=== PATIENT | male | born 1945 | race Two or more races ===

== ENCOUNTER 2024-11-10 06:08 | Observation (INO) | payer OTHER ==
[~2024-11-10] VITALS: Ht 167.6 cm; Wt 112.0 kg
[~2024-11-10 06:08] MED LIST: APIX5TAB PO; ATOR20TA50 PO; DRON400T PO; EMPA1TAB3 PO; GLIP10TA9 PO; MET50T GT; METF-372 PO; MULT-1018 PO; NIFE1TAB31 PO; POTA-36 PO; SITA100T7 PO; SPIR25TA8 PO
[2024-11-10] MEDS: CELECOXIB 100 MG CAP ONE (06:14)
[2024-11-10] MEDS: ACETAMINOPHEN IV 100 ML IV ONE (06:15)
[2024-11-10] MEDS: PREGABALIN CAPSULE 75 MG CAP ONE (06:29)
[2024-11-10] MEDS: ACETAMINOPHEN IV 1000 MG/100ML (10MG/ML) IV ONE (07:00)
[2024-11-10] MEDS: CELECOXIB 100 MG CAP PO ONE (07:00)
[2024-11-10] MEDS ORDERED: OXYCODONE W/ ACETAMINOPHEN 5/325MG TABLET PO PRN ×2 (07:00)
[2024-11-10] MEDS ORDERED: HYDROmorphone HCL 2 MG/ML VL/or syr IV PRN (07:00)
[2024-11-10] MEDS: D5W/LACTATED RINGERS 1,000 ML IV SCH (07:00)
[2024-11-10] MEDS: PREGABALIN CAPSULE 75 MG CAP PO ONE (07:00)
[2024-11-10] MEDS ORDERED: NITROGLYCERIN 0.4 MG SL TAB SL PRN (07:00)
[2024-11-10] MEDS ORDERED: MORPHINE SULFATE INJ 2 MG/ml SYRG IV PRN (07:00)
[2024-11-10] MEDS: SUCCINYLCHOLINE CHLORIDE 20 MG/ML 10ML VIAL IV ONE (07:12)
[2024-11-10] MEDS ORDERED: fentaNYL CITRATE 100 MCG/2 ML VL ONE (07:14)
[2024-11-10] MEDS ORDERED: DEXTROSE (50%) 50ML SYRG IV PRN (07:15)
[2024-11-10] MEDS ORDERED: PROPOFOL 10 MG/ML 20 ML IV ONE (07:15)
[2024-11-10] MEDS ORDERED: HYDROmorphone HCL 2 MG/ML VL/or syr ONE (07:15)
[2024-11-10] MEDS: ceFAZolin 2 GM/D5W50ml 50 ML IV ONE (07:25)
[2024-11-10] MEDS: CEFEPIME 1GM/ 50ML 50 ML IV ONE (07:30)
[2024-11-10] MEDS: TRANEXAMIC ACID 20 ML ONE (07:35)
[2024-11-10] MEDS ORDERED: ROCURONIUM 10MG/ML 10ML VIAL IV ONE (07:40)
[2024-11-10] MEDS: KETOROLAC TROMETH 30 MG/ML 1ML VIAL ONE (07:50)
[2024-11-10] MEDS: MORPHINE SULF PF 5 MG/10 ML VIAL ONE (07:50)
[2024-11-10] MEDS: BUPIVACAINE 0.25% INJ 50ML VIAL ONE (07:50)
[2024-11-10] MEDS: VANCOMYCIN HCL 1000 MG VL ONE (08:30)
[2024-11-10] MEDS ORDERED: SUGAMMADEX 200mg/2ml Vial (100MG/ML) IV ONE (08:44)
[2024-11-10 08:50] VITALS: PULSE 59; RESP 9; O2SAT 94
[2024-11-10] MEDS ORDERED: KETOROLAC TROMETH 30 MG/ML 1ML VIAL ONE (09:10)
[2024-11-10] MEDS: ONDANSETRON HCL 4 MG/2 ML VIAL IV ONE (09:15)
[2024-11-10] MEDS ORDERED: MEPERIDINE HCL (25 MG/ML) 1ML VIAL IV PRN (09:15)
[2024-11-10] MEDS ORDERED: ACETAMINOPHEN IV 1000 MG/100ML (10MG/ML) IV PRN (09:15)
[2024-11-10] MEDS ORDERED: ATORVASTATIN 20 MG TAB PO SCH (10:00)
[2024-11-10] MEDS: METOPROLOL TARTRATE 50 MG TAB GT SCH (10:00)
[2024-11-10] MEDS: SPIRONOLACTONE 25 MG TAB PO SCH (10:00)
[2024-11-10] MEDS: CEFEPIME 1GM/ 50ML 50 ML IV SCH (10:00)
[2024-11-10] MEDS: JARDIANCE 25 MG PO SCH (10:00)
--- NOTE | 2024-11-10 10:04 | DVH ---
EXAM: XY R SHOULDER 1V XRAY HISTORY: sp Right reverse total shoulder COMPARISON: None TECHNIQUE: AP view of the right shoulder performed. FINDINGS/IMPRESSION: Postoperative changes of right shoulder reverse total arthroplasty, with nondisplaced periprosthetic fracture involving the right humeral diaphysis just distal to the tip of the humeral stem.
[2024-11-10] MEDS: HYDROmorphone HCL 2 MG/ML VL/or syr IV PRN (10:21)
[2024-11-10] MEDS: HYDROmorphone HCL 2 MG/ML VL/or syr ONE (10:29)
--- NOTE | 2024-11-10 11:05 | DVHOP2 ---
Operative Report - 2 Report Details Date: 11/10/24 Preop Diagnosis: Right rotator cuff arthropathy Postop Diagnosis: Right rotator cuff arthropathy Surgeon: Babar Gardiner MD X Ray Nurse: Manjinder WEINSTEIN/ Dawit BEACH Anesthesiologist: Chiqui TAPIA Anesthesia: General Implant: Shoulder FX 36 mm glenoid 12 mm stem +6 constraint poly 4 locking screws Consent: The patient was informed of the risks and benefits of the procedure. These include but are not limited to complications of anesthesia, postoperative infection, incomplete relief of symptoms, recurrence of symptoms, damage to blood vessels, nerves and tendons, deep venous thrombosis, pulmonary embolism and possible need for repeat surgery in the future. Estimated Blood Loss: 100 cc Name of Procedure Performed Right reverse total shoulder replacement Procedure Details Procedure Details: The patient was taken to the operative suite, placed on the operative field. Department of Anesthesia administered general anesthetic. Once adequately sedated, the patient was placed in the beach chair position. Care was ensured that he was well positioned, adequately secured and padded. At this point, the right upper extremity was then prepped and draped in the usual sterile fashion. A deltopectoral approach was used and taken down to the skin with a #15 blade scalpel. Cephalic vein was transported medially. At this point, blunt dissection with Thakkar scissors was used to come to the overlying subscapular tendon and bursal tissue. Any perforating bleeders were cauterized with Bovie to obtain hemostasis. Once the bursa was seen, it was removed with a Rongeur and subscapular tendon could be easily visualized. At this point, the rotator cuff in the subacromial region was evaluated. There was noted to be a large rotator cuff, which was irreparable. There was eburnated bone on the greater tuberosity noted. The articular surface could be visualized. The biceps tendon was intact. Biceps tenodesis was done to the pec minor. At this point, the subscapular tendon was then taken off using Bovie cautery and Metzenbaum scissors. Protection of axillary nerve was done while subscap and capsule fully releaed. It was from the capsule to have a two layered repair at closure. The capsule was also reflected posterior. At this point, the glenoid surface could be easily visualized. It was evaluated and had end stage arthritis. The humeral head was evaluated. There was noted to be alexander of the cartilage and eburnated bone particularly in the central portion of the humeral head. At this point, decision was made to proceed with the arthroplasty, since the rotator cuff tear was irreparable and there was significant alexander of the humoral head. The arm was adequately positioned. An oscillating saw was used to make the head articular cut using guide. This was done at the margin of the articular surface with the anatomic neck. This was taken down to appropriate level until this articular surface was adequately removed. At this point, the intramedullary canal and cancellous bone could be easily visualized. The opening hand reamers were then used and this was advanced to a size that had a good fit. Under direct visualization, this was performed easily. This was then removed. A trial component was then impacted into place, which did fit well and appeared adequately secured. We then turned our attention to glenoid. Batman retractor placed posteroinfe riorly on glenoid. Subscap was mobilized wtih protection the axillary nerve with palpation. Dorian was place between subscap and gelnoid. A bent malcolm was placed just above the the biceps tendon on the glenoid. Labrum was removed and capsule was released. We then placed glenoid drill guide and steinmann pin according to CT for correct version. We reamed glenoid down to bleeding cancellous bone. Glenoid irrigataed and glenoid component placed. Center lag screw with excellent bicortical purchase. 4 locking screws placed. Correct glenosphere offset determined and glenosphere impacted. Stand humeral tray and liner trialed with good IR/ER/FF and stability with only 1 mm shuck. Trial liner removed. Humerus trial removed. Correct humeral implant impacted along with tray and liner. Stability was appropriate. Subscap was not able to be repaired. Wound was irrigated. Deltopectoral interval closed with 0-vicryl followed by 2-0 and janice for skin. Aquacel dressing placed. Condition Good Disposition Still a Patient BABAR GARDINER MD Nov 10, 2024 11:05
[2024-11-10] MEDS: ACCU-CHEK COMFORT CURVE STRIP VI SCH (11:30)
[2024-11-10] MEDS: InsuLIN REG 1unit/0.01ml Soln (100units/ml) SC SCH ×2 (11:30→22:13)
[2024-11-10] MEDS: SODIUM CHLOR 0.9% PF (SALINE LOCK) 10ML VIAL/SYR IV SCH (14:11)
[2024-11-10] MEDS: DRONEDARONE HCL 400 MG TAB PO SCH (14:42)
[2024-11-10] MEDS: ceFAZolin 2 GM/D5W50ml 50 ML IV SCH (14:43)
[2024-11-10] MEDS: POTASSIUM CHL 20 Meq TABLET PO SCH (14:44)
[2024-11-10] MEDS: MULTIPLE VITAMIN TAB PO SCH (14:45)
[2024-11-10 17:00] VITALS: BP_SYST 115; BP_SYST 123; BP_DIAS 65; BP_DIAS 69; PULSE 59; PULSE 66; RESP 16; RESP 19; TEMP 95.8; TEMP 98; O2SAT 100; O2SAT 95
[2024-11-10] MEDS: glipiZIDE 5 MG TAB PO SCH (18:05)
--- NOTE | 2024-11-10 19:19 | DVHINCON2 ---
Date Seen: Nov 10, 2024 Referring Physician Orthopedic surgeon. Reason for Consultation Medical management. History of Present Illness 79-year-old male with a known history of chronic AFib, hypertension, diabetes mellitus type 2, dyslipidemia, right rotator cuff arthropathy initially present ed to the hospital for elective procedure for right rotator cuff arthropathy. Patient is status post reverse right shoulder replacement. Patient does have known history of chronic AFib hypertension diabetes type 2 dyslipidemia currently denies any complaints. Patient's Eliquis was stopped few days ago. Past Medical History Diabetes mellitus type 2 Hypertension Dyslipidemia Chronic AFib Past Surgical History Status post reverse right total shoulder replacement for right rotator cuff arthropathy Allergies: Coded Allergies: NO KNOWN ALLERGIES (Unverified , 11/06/24) Home Meds Reported Medications Multiple Vitamin (Multivitamins) Tab, 1 TAB PO DAILY, #30 TAB 2 Refills 11/06/24 Nifedipine (Nifedipine Er) 30 Mg Tab, 30 MG PO DAILY, TAB 11/06/24 Atorvastatin Calcium (ATORVASTATIN CALCIUM) 20 Mg Tab, 20 MG PO DAILY, TAB 11/06/24 Potassium Chloride (POTASSIUM CHLORIDE CR) 10 Meq Tb, 20 MEQ PO DAILY, TAB 11/06/24 Empagliflozin (Jardiance) 25 Mg Tab, 25 MG PO DAILY, TAB 11/06/24 Sitagliptin Phosphate (Januvia) 100 Mg Tab, 100 MG PO DAILY, TAB 11/06/24 Metformin Hydrochloride (Metformin Hcl) 1,000 Mg Tab, 1000 MG PO DAILY, TAB 11/06/24 Glipizide (Glipizide) 10 Mg Tab, 10 MG PO BID, TAB 11/06/24 Spironolactone (Spironolactone) 25 Mg Tab, 25 MG PO DAILY, TAB 11/06/24 Dronedarone Hydrochloride (Multaq) 400 Mg Tab, 400 MG PO BID, TAB 11/06/24 Apixaban Base (ELIQUIS) 5 Mg Tab, 5 MG PO BID, TAB 11/06/24 Metoprolol Tartrate (LOPRESSOR TABLET) 50 Mg Tb, 25 MG GT BID, TAB 11/06/24 Current Medications Current Medications Medications (Trade) Dose Ordered Sig/Berkley Route PRN Reason Start Time Stop Time Status Last Admin Atorvastatin Calcium (Lipitor) 20 mg DAILY PO 11/10/24 10:00 11/10/24 12:29 DC Metoprolol Tartrate (Lopressor Tablet) 25 mg BID GT 11/10/24 10:00 Multivitamins (Mvi Tab) 1 tab DAILY PO 11/10/24 10:00 11/10/24 14:45 Nifedipine (Procardia Xl (Time-Release)) 30 mg DAILY PO 11/10/24 10:00 Spironolactone (Aldactone) 25 mg DAILY PO 11/10/24 10:00 Dronedarone (MulTAQ) 400 mg BID PO 11/10/24 10:00 11/10/24 14:42 Patient Own Medication 25 mg DAILY PO 11/10/24 10:00 Glipizide (Glucotrol Tablet) 10 mg IBID PO 11/10/24 18:00 11/10/24 18:05 Metformin HCl (Glucophage) 1,000 mg DAILY PO 11/10/24 10:00 11/10/24 14:42 Potassium Chloride (Klor-Con Tablet) 20 meq DAILY PO 11/10/24 10:00 11/10/24 14:44 Patient Own Medication 100 mg DAILY PO 11/10/24 10:00 Sodium Chloride (Saline Lock Ns) 10 ml Q8HR IV 11/10/24 14:00 11/10/24 14:11 Dextrose/Lactated Ringer's 1,000 ml @ 100 mls/hr Q10H IV 11/10/24 07:00 11/10/24 17:34 Nitroglycerin (Ntrostat Sublingual) 0.4 mg Q5MINP PRN SL FOR CHEST PAIN 11/10/24 07:00 Morphine Sulfate 2 mg Q30M PRN IV FOR CHEST PAIN 11/10/24 07:00 Cefepime HCl 50 ml @ 12.5 mls/hr DAILY IV 11/10/24 10:00 Cefazolin Sodium/ Dextrose 50 ml @ 50 mls/hr Q8HR IV 11/10/24 14:00 11/11/24 06:59 11/10/24 14:43 Oxycodone/ Acetaminophen (Percocet 5/ 325MG Tablet) 1 tab Q4HPRN PRN PO MILD PAIN (1-3 PAIN SCALE) 11/10/24 07:00 Oxycodone/ Acetaminophen (Percocet 5/ 325MG Tablet) 2 tab Q4HP PRN PO MODERATE PAIN (4-6 PAIN SCALE) 11/10/24 07:00 Hydromorphone HCl (Dilaudid Injection) 1 mg Q3HPRN PRN IV SEVERE PAIN (7-10 PAIN SCALE) 11/10/24 07:00 Enoxaparin Sodium (Lovenox) 40 mg DAILY SC 11/11/24 10:00 Diagnostic Test (Pha) (Accu-Chek Comfort Curve T) 1 strip ACHS 11/10/24 11:30 11/10/24 17:15 Insulin Human Regular (InsuLIN R) HS SC 11/10/24 22:00 Insulin Human Regular (InsuLIN R) AC SC 11/10/24 11:30 Dextrose 50 ml UD PRN IV Blood Sugar LESS THAN 60 11/10/24 07:15 Acetaminophen (Ofirmev) 1,000 mg [id number] PRN IV PAIN SCALE 1-3 OR TEMP>100.4 11/10/24 09:15 11/10/24 10:58 DC Hydromorphone HCl (Dilaudid Injection) 0.5 mg Q10M PRN IV SEVERE PAIN (7-10 PAIN SCALE) 11/10/24 09:15 11/10/24 12:18 DC 11/10/24 10:37 Meperidine HCl (Demerol Injection) 25 mg Q10M PRN IV MODERATE PAIN (4-6 PAIN SCALE) 11/10/24 09:15 11/10/24 12:18 DC Atorvastatin Calcium (Lipitor) 20 mg HS PO 11/10/24 22:00 Review of Systems Twelve review of system were negative except mentioned above. Vital Signs Vital Signs Date Time Temp Pulse Resp B/P (MAP) Pulse Ox O2 Delivery O2 Flow Rate FiO2 11/10/24 17:00 98.0 59 16 115/65 (82) 95 98.0 11/10/24 17:00 Nasal Cannula* 3 32 Physical Exam HEENT pupils are reactive Neck is supple CV is S1-S2 regular rate and rhythm Respiratory diminished breath sound bases GI posterior bowel sound Extremity no edema [employer] no motor deficit Labs/Diagnostic Data Labs Test 11/10/24 09:06 Range/Units POC Glucose 174 H 70-106 mg/dl Assessment 79-year-old male with a known history of chronic right rotator cuff arthropathy three is here for 1. Hypertension controlled 2. Diabetes mellitus type 2 3. Dyslipidemia 4. History of paroxysmal AFib currently off of Eliquis because of surgery 5. Status post reverse right shoulder replacement for right rotator cuff arthropathy. -resume Eliquis, continue home medication Accu-Cheks a.c. and h.s. low-dose slid ing scale -thank you very much for the consultation I will be follow up the patient along with the use - discharge plan once cleared by Orthopedics. Plan discussed with: Patient Date of Service: Nov 10, 2024 Billing Provider: ALEXANDRU HERRERA MD Common Visit Codes: NOT BILLABLE ALEXANDRU HERRERA MD Nov 10, 2024 19:19
[2024-11-10 20:00] VITALS: PULSE 60; PULSE 68; RESP 18; O2SAT 96
[2024-11-10 21:00] VITALS: BP 118/70; PULSE 63; RESP 20; TEMP 98; O2SAT 96
[2024-11-10] MEDS: ATORVASTATIN 20 MG TAB PO SCH (22:13)
[2024-11-11] VITALS (7 sets, daily range): BP systolic 101–105; BP diastolic 55–65; PULSE 46–56; RESP 16–21; TEMP 96.5–98.5; O2SAT 93–98
--- NOTE | 2024-11-11 08:02 | DVHDS2 ---
Discharge Summary Date of Admission Nov 10, 2024 at 06:54 Date of Discharge: Nov 11, 2024 Wounds: If the wound is draining simply tape a dry gauze pad on the wound until it stops. If drainage persists past 10 days please notify our office. 1. You might notice some bruising around the surgical site, this is normal. 2. Please note that a low-grade temp below 101 is not uncommon after surgery especially during the first 3 days. Notify the office if your temperature spikes above 101.5 after the 3rd post-operative date. 3. Many patients experience significant swelling in the arm, this may extend below the elbow. Swelling increases during the first week and subsides during the following week. 4. Provided you have been on a blood thinner since surgery , the risk of a blood clot is low and this swelling is an expected part of recovery. It will largely or completely resolve by your first post-operative visit. 5. Apply ice to the shoulder as it will be quite helpful. After two days, you can change the dressing to a smaller one to allow the cold to better get to the shoulder. 6. Remove the sling - Move your elbow, wrist, hand and finger several times a day. Begin the pendulum exercises several times a day. 7. Put the sling back on when youre done with these exercises. 8. After two days it is okay to shower but do not get the wound wet for at least two weeks after surgery. Keep it covered with plastic wrap while showering. 9. Do not submerge the wound as you would in a bath tub or hot tub for at least 4 weeks after surgery. 10. To wash under your operated arm bend over at the waist and let the arm passively swing away from the body. It is safe to wash under the arm in this position. 11. You will need to take prophylactic antibiotics before dental procedures, colonoscopies or other invasive procedures. This consists of Amoxicilin (2 grams one hour prior to your procedure), or if you have a penicillin allergy you should take Clindamycin (600mg one hour prior to procedure). Labs/Diagnostic Data: Laboratory Results Test 11/11/24 06:37 POC Glucose 218 mg/dl (70-106) Brief Hx & Hospital Course: right reverse total shoulder arthroplasty Condition at Discharge: Good Final Diagnosis/Problems List Right rotator cuff arthropathy Discharge Disposition: Home with Health Services Discharge Instruct/Medications Diet: Regular Diet comment: can advance diet as tolerated, drink plenty of fluids Activity comment: Reverse or Inverse Total Shoulder Arthroplasty (rTSA) is designed specifically for the treatment of glenohumeral (GH) arthritis when it is associated with irreparable rotator cuff damage, complex fractures as well as for a revision of a previously failed conventional Total Shoulder Arthroplasty (TSA) in which the rotator cuff tendons are deficient. The rotator cuff is either absent or minimally involved with the rTSA; therefore, the rehabilitation for a patient following the rTSA is different than the rehabilitation following a traditional TSA. The surgeon, physical therapist and patient need to take this into consideration when establishing the postoperative treatment plan. Important rehabilitation management concepts to consider for a postoperative physical therapy rTSA program are: Joint protection: There is a higher risk of shoulder dislocation following rTSA than a conventional TSA. o Avoidance of shoulder extension past neutral and the combination of shoulder adduction and internal rotation should be avoided for 12 weeks postoperatively. o Patients with rTSA dont dislocate with the arm in abduction and external rotation. They typically dislocate with the arm in internal rotation and adduction in conjunction with extension. As such, tucking in a shirt or performing bathroom / persona hygiene with the operative arm is an especially dangerous activity particularly in the immediate narinder-operative phase. Deltoid function: Stability and mobility of the shoulder joint is now dependent upon the deltoid and periscapular musculature. This concept becomes the foundation for the postoperative physical therapy management for a patient that has undergone rTSA. Reverse Total Shoulder Arthroplasty Protocol: The intent of this protocol is to provide the physical therapist with a guideline/treatment protocol for the postoperative rehabilitation management for a patient who has undergone a Reverse Total Shoulder Arthroplasty (rTSA). It is by no means intended to be a substitute for a physical therapists clinical decision making regarding the progression of a patients postoperative rehabilitation based on the individual patients physical exam/findings, progress, and/or the presence of postoperative complications. If the physical therapist requires assistance in the progression of a postoperative patient who has had rTSA the therapist should consult with the referring surgeon. The scapular plane is defined as the shoulder positioned in 30 degrees of abduction and forward flexion with neutral rotation. ROM performed in the scapular plane should enable appropriate shoulder joint alignment. Shoulder Dislocation Precautions: No shoulder motion behind back. (NO combined shoulder adduction, internal rotation, and extension.) No glenohumeral (GH) extension beyond neutral. *Precautions should be implemented for 12 weeks postoperatively unless surgeon specifically advises patient or therapist differently. Patients should use a sling for 6 weeks, not to begin deltoid isometrics for at least four weeks postoperatively, not to begin active range of motion (AROM) flexion for at least six weeks, and not begin deltoid strengthening for at least 12 weeks post operatively. Follow Up/Referral: Call our office if you have any of the following: Fever over 101 degrees. Excessive bloody wound drainage Yellow, green or foul smelling drainage A large red area around the incisions. You suspect an allergic reaction to medications or dressing materials. This could be shortness of breath, a rash or redness, hives, etc. Severe tenderness or numbness in the leg. Move your toes and flex your ankles up and down several times an hour to keep the blood circulating. Medications: Take your regular medications as prescribed. You have been given a prescription for pain medication. Please take according to the instructions. If your pain becomes too severe, dont try to tough it out. Call our office if you have severe pain that doesnt respond to pain medication. Some pain medications contain Tylenol. DO NOT take additional Tylenol without discussing with your surgeon. This can lead to liver failure. Do not drive while you are on narcotic pain medication. Blood thinner ECASA 325 mg daily for 6 weeks Pain medication can cause constipation. Drink plenty of water and/or fruit juice. Take milk of magnesia if you become constipated, or use a stool softener such as Dulcolax. Scheduled Apixaban Base (Eliquis), 5 MG PO BID, (Reported) Atorvastatin Calcium (Atorvastatin Calcium), 20 MG PO DAILY, (Reported) Dronedarone Hydrochloride (Multaq), 400 MG PO BID, (Reported) Empagliflozin (Jardiance), 25 MG PO DAILY, (Reported) Glipizide (Glipizide), 10 MG PO BID, (Reported) Metformin Hydrochloride (Metformin Hcl), 1,000 MG PO DAILY, (Reported) Metoprolol Tartrate (Lopressor Tablet), 25 MG GT BID, (Reported) Multiple Vitamin (Multivitamins), 1 TAB PO DAILY, (Reported) Nifedipine (Nifedipine Er), 30 MG PO DAILY, (Reported) Potassium Chloride (Potassium Chloride Cr), 20 MEQ PO DAILY, (Reported) Sitagliptin Phosphate (Januvia), 100 MG PO DAILY, (Reported) Spironolactone (Spironolactone), 25 MG PO DAILY, (Reported) Discharge Statement: "Patient was advised to return to the ER or call 911 if any headaches, dizziness, shortness of breath, chest pain, abdominal pain, bleeding, fevers, or worsening of medical condition. Patient was counseled about treatment plan, medications, possible side effects, patientverbalized understanding. All questions were answered to the best of my ability. This discharge took greater then 30 minutes in planning, reviewing documentation, counseling the patient, and discussing with other team members." ASSESSMENT ASSESSMENT Assessment Right rotator cuff arthropathy MICHELLE ORLANDO NP Nov 11, 2024 08:02
[2024-11-11] MEDS: ENOXAPARIN SOD 40 MG/0.4 ML SYRINGE SC SCH (09:50)
== END 2024-11-11 15:30 | disposition home or self-care (01) ==
LOC: SUR 06:08 → INTOOBSV 06:54 → OVERFLOW 06:54 → TELE-EAST 16:20
PROVIDERS: ADMIT Orthopaedic Surgery Adult Reconstructive Orthopaedic Surgery; ATTEND Orthopaedic Surgery Adult Reconstructive Orthopaedic Surgery
DX: M75.121 Complete rotator cuff tear or rupture of right shoulder, not specified as traumatic (principal); I10 Essential (primary) hypertension; E78.5 Hyperlipidemia, unspecified; E11.9 Type 2 diabetes mellitus without complications; Z79.899 Other long term (current) drug therapy; Z98.890 Other specified postprocedural states
CPT/HCPCS: 23472; 73020; 82962; 86850; 86900; 86901; 96365; 96366; 96367; 97163; C1713; C1769; C1776; G0378; J0330; J0690; J0692; J1171; J1815; J1885; J2270; J2704; J3010; J3373; A4565; J0131; J3490

== ENCOUNTER 2025-02-02 00:39 | Emergency (ER) | payer OTHER ==
[~2025-02-02] VITALS: Ht 167.6 cm; Wt 112.3 kg
[2025-02-02 00:40] VITALS: BP 135/97; PULSE 124; RESP 20; TEMP 98.9; O2SAT 95
--- NOTE | 2025-02-02 01:03 | ED.PDOC ---
History of Present Illness(SKN HPI Comments 79 y/o morbidly obese M presents with c/c of abscess wound to the posterior aspect of his neck, with associated redness and pain. Denial of discharge, fever, chills, nausea, vomiting, or further associated symptoms. Chief Complaint: Wound Check Time Seen by MD: 01:00 History of Present Illness: Nurses Notes, Medications, Allergies Allergies: Coded Allergies: NO KNOWN ALLERGIES (Unverified , 11/06/24) Home Meds Active Scripts Doxycycline Hyclate (Doxycycline Hyclate) 100 Mg Cap, 100 MG PO BID for 7 Days, #14 CAP Prov:APRIL DIEHL [employer] 02/02/25 Reported Medications Multiple Vitamin (Multivitamins) Tab, 1 TAB PO DAILY, #30 TAB 2 Refills 11/06/24 Nifedipine (Nifedipine Er) 30 Mg Tab, 30 MG PO DAILY, TAB 11/06/24 Atorvastatin Calcium (ATORVASTATIN CALCIUM) 20 Mg Tab, 20 MG PO DAILY, TAB 11/06/24 Potassium Chloride (POTASSIUM CHLORIDE CR) 10 Meq Tb, 20 MEQ PO DAILY, TAB 11/06/24 Empagliflozin (Jardiance) 25 Mg Tab, 25 MG PO DAILY, TAB 11/06/24 Sitagliptin Phosphate (Januvia) 100 Mg Tab, 100 MG PO DAILY, TAB 11/06/24 Metformin Hydrochloride (Metformin Hcl) 1,000 Mg Tab, 1000 MG PO DAILY, TAB 11/06/24 Glipizide (Glipizide) 10 Mg Tab, 10 MG PO BID, TAB 11/06/24 Spironolactone (Spironolactone) 25 Mg Tab, 25 MG PO DAILY, TAB 11/06/24 Dronedarone Hydrochloride (Multaq) 400 Mg Tab, 400 MG PO BID, TAB 11/06/24 Apixaban Base (ELIQUIS) 5 Mg Tab, 5 MG PO BID, TAB 11/06/24 Metoprolol Tartrate (LOPRESSOR TABLET) 50 Mg Tb, 25 MG GT BID, TAB 11/06/24 Information Source: Patient Mode of Arrival: Ambulatory Severity: Moderate Timing: Hours Duration: Since onset Prehospital treatment: None Past Medical History PAST MEDICAL HISTORY: Denies Surgical History: Denies all surgeries Family History Family History: Unknown Social History Smoker: Non-Smoker Alcohol: Denies ETOH Use Drugs: Denies Drug Use Lives In: Home All Other Systems: Reviewed and Negative (Comprehensive review of systems are negative unless stated in HPI) Physical Exam General Appearance: No Apparent Distress, Obese HEENT: Pharynx Normal Neck: Full Range of Motion, Non-Tender Respiratory: Lungs Clear, No Respiratory Distress, Normal Breath Sounds Cardiovascular: No Edema, No JVD, No Murmur, No Gallop, Normal Peripheral Pulses, Regular Rate/Rhythm Breast Exam: Deferred Gastrointestinal: Non Tender, Soft Genitalia: Deferred Pelvic: Deferred Rectal: Deferred Extremities: Normal capillary refill, Normal range of motion, No pedal edema Musculoskeletal : Apperance: Normal Neurologic: Alert, No Motor Deficits, Normal Affect, Normal Mood, No Sensory Deficits Cerebellar Function: Normal Reflexes: NOT DONE Skin: Dry, Normal Color, Warm, Wounds (Golf ball size boil posterior nap of neck with center puncture wound non fluctuant hard and tender to touch) Lymphatic: No Adenopathy Was a procedure done? Was a procedure done?: No Differential Diagnosis (INTG) Abscess: Abscess, Bacteremia, Cellulitis, Erysipelas X-Ray, Labs, Meds, VS Vital Signs Date Time Temp Pulse Resp B/P (MAP) Pulse Ox O2 Delivery O2 Flow Rate FiO2 02/02/25 00:40 98.9 124 20 135/97 95 98.9 X-Ray, Labs, Meds, VS Comment Non fluctuant very hard to touch in the nap of neck advised warm compresses and script trial of antibiotics advised to follow up in 2-3 days for re-evaluation with his PCP urgent care if unable to get in back in the ER. Advised on ER return precautions patient indicates understanding and agrees with discharge plan of care. Time of 1ST Reevaluation: : Reevaluation 1ST: Unchanged Time of 2ND Reevaluation: :30 Reevaluation 2ND: Improved Patient Education/Counseling: Treatment, Need For Follow Up Family Education/Counseling: No Family Present SEPSIS Sepsis Screen Date sepsis recognized/suspect: Feb 02, 2025 Time Sepsis recognized/suspect: 004 Recent Procedure: No On Antibiotic Therapy: No Respiratory Rate >20: No Heart Rate >90: Yes Temp<36 C (96.8 F) or >38.3 C: No SBP <90 or MAP <65 mmHG: No New Acute Mental Status Change: No Is the patient on CPAP, BIPAP,: No Vital Signs Date Time Temp Pulse Resp B/P (MAP) Pulse Ox O2 Delivery O2 Flow Rate FiO2 02/02/25 00:40 98.9 124 20 135/97 95 98.9 Departure 1 Departure Time of Disposition: :26 Impression: Primary Impression: Boil of neck Disposition: HOME / SELF CARE / HOMELESS Condition: Stable e-Prescriptions Doxycycline Hyclate (Doxycycline Hyclate) 100 Mg Cap 100 MG PO BID for 7 Days, #14 CAP Prov: APRIL DIEHL 02/02/25 Discharged With: Self Critical Care Note Critical Care Time?: No Stability Stability form required: No Heart Score Heart Score: Heart Score Response (Comments) Value History N/A 0 EKG N/A 0 Age N/A 0 Risk Factors N/A 0 Troponin N/A 0 Total 0 I personally scribed for ER ([email or web address]) on 02/02/25 at 01:03. Electronically submitted by Yemi Bullock ([email or web address]). ER Feb 02, 2025 01:03 APRIL DIEHL Feb 02, 2025 01:28
[2025-02-02] MEDS ORDERED: DOXY100C4 PO (01:27)
== END 2025-02-02 01:28 | disposition home or self-care (01) ==
LOC: ER 00:39
DX: L02.11 Cutaneous abscess of neck (principal); Z79.899 Other long term (current) drug therapy

== ENCOUNTER 2025-03-01 17:23 | Inpatient (IN) | payer OTHER ==
[~2025-03-01] VITALS: Ht 167.6 cm; Wt 108.0 kg
[2025-03-01] MEDS: SODIUM CHLORIDE 0.9% 500 ML IVB ONE (17:45)
[2025-03-01] MEDS: SODIUM CHLORIDE 0.9% 1,000 ML IV ONE (17:45)
[2025-03-01 18:14] LABS: Hematocrit 44.3 % (41.0-53.0); Hemoglobin 14.6 g/dL (13.5-17.5); Mean Corpuscular Hemoglobin 30.5 pg (28.0-32.0); Mean Corpuscular Volume 92.1 fL (80.0-100.0); Nucleated Red Blood Cells % 0.1 %
[2025-03-01 18:28] LABS: Alanine Aminotransferase 15 U/L (7-40); Alkaline Phosphatase 72 U/L (46-116); Anion Gap 11 (5-15); BUN/Creatinine Ratio 11.2 (10.0-20.0); Blood Urea Nitrogen 12 mg/dL (9-23); Calcium 9.1 mg/dL (8.7-10.4); Carbon Dioxide 25 mmol/L (20-31); Chloride 101 mmol/L (98-107); Sodium 137 mmol/L (136-145); Total Protein 8.1 g/dL (5.7-8.2)
[2025-03-01 18:29] LABS: Albumin 4.4 g/dL (3.2-4.8); Bilirubin, Total 0.6 mg/dL (0.2-1.0)
--- NOTE | 2025-03-01 18:34 | DVH ---
CHEST RADIOGRAPH Indication: fever Technique: Single frontal view of the chest was obtained Comparison: None FINDINGS: Lines and Tubes: None Lungs: Left lower lobe airspace disease in the retrocardiac area with left pleural effusion. Pleura: No effusion. No pneumothorax. Cardiomediastinal contours: Unremarkable Bones: Right shoulder prosthesis in place. IMPRESSION: 1. Left lower lobe airspace disease with poor visualization of the left diaphragm in the small left p leural effusion.
[2025-03-01 18:36] LABS: Glucose 227 mg/dL (74-106); Potassium 3.4 mmol/L (3.5-5.1)
[2025-03-01 18:37] VITALS: PULSE 102; RESP 23; O2SAT 95
[2025-03-01 18:52] LABS: INR 1.08 (0.9-1.15); Partial Thromboplastin Time 30.2 SEC (24.5-34.5); Prothrombin Time 11.4 sec (9.3-11.8)
[2025-03-01 19:58] VITALS: PULSE 124; RESP 13; O2SAT 97
--- NOTE | 2025-03-01 21:21 | ED.PDOC ---
HPI (NEURO) HPI Comments 79 y/o obese M presents with c/c of generalized weakness, dizziness, and lightheadedness. Patient endorses on 2x day history of symptoms following initial, unprovoked and atraumatic onset. Significant history for AFib - on Eliquis, DM II, HLD, and HTN. He reports on being unable to do his daily activities. No endorsed recent prior ailments, sick contacts, injuries, or further pertinent history or events except for recent medication changes made by his PCP, earlier, this week. Denies any chest pain, shortness of breath, speech or vision changes, headache, or further acute symptoms. Chief Complaint: General Weakness Time Seen by MD: 17:30 Reviewed Notes: Nurses Notes, Medications, Allergies Information Source: Patient Mode of Arrival: Wheelchair Severity: Moderate Dizziness/Weakness Severity: Unable to do activities Past Medical History PAST MEDICAL HISTORY: AFIB, DM (type II ), High Lipids, HTN Surgical History (Other): right reverse total shoulder arthroplasty Family History Family History: Unknown Social History Smoker: Non-Smoker Alcohol: Denies ETOH Use Drugs: Denies Drug Use Lives In: Home Constitutional: denies: chills, diaphoresis, fatigue, fever, malaise, sweats, weakness, others EENTM: denies: blurred vision, double vision, ear bleeding, ear discharge, ear drainage, ear pain, ear ringing, eye pain, eye redness, hearing loss, mouth pain, mouth swelling, nasal discharge, nose bleeding, nose congestion, nose pain, photophobia, tearing, throat pain, throat swelling, voice changes, others Respiratory: denies: cough, hemoptysis, orthopnea, SOB at rest, shortness of breath, SOB with excertion, stridor, wheezing, others Cardiovascular: reports: dizzy spells, lightheadedness; denies: chest pain, diaphoresis, Dyspnea on exertion, edema, irregular heart beat, left arm pain, palpitations, PND, syncope, others Gastrointestinal: denies: abdomen distended, abdominal pain, blood streaked bowels, constipated, diarrhea, dysphagia, difficulty swallowing, hematemesis, melena, nausea, poor appetite, poor fluid intake, rectal bleeding, rectal pain, vomiting, others Genitourinary: denies: burning, dysuria, flank pain, frequency, hematuria, incontinence, penile discharge, penile sore, pain, testicle pain, testicle swelling, urgency, others Neurological: reports: dizziness, weakness; denies: fainting, headache, left sided numbness, left sided weakness, numbness, paresthesia, pre-existing deficit, right sided numbness, right sided weakness, seizure, speech problems, tingling, tremors, others Musculoskeletal: denies: back pain, gout, joint pain, joint swelling, muscle pain, muscle stiffness, neck pain, others Integumetry: denies: bruises, change in color, change in hair/nails, dryness, laceration, lesions, lumps, rash, wounds, others Allergic/Immunocompromised: denies: Difficulty Healing, Frequent Infections, Hives, Itching, others Endocrine: denies: excessive hunger, excessive sweating, excessive thirst, excessive urination, flushing, intolerance to cold, intolerance to heat, unexplained weight gain, unexplained weight loss, others Psychiatric: denies: anxiety, bipolar disorder, depression, hopeless, panic disorder, schizophrenia, sleepless, suicidal, others Physical Exam General Appearance: Moderate Distress, Obese HEENT: Normal ENT Inspection, PERRL/EOMI Neck: Full Range of Motion, Non-Tender, Normal, Normal Inspection Respiratory: Chest Non-Tender, Crackles, Decreased Breath Sounds, Expiration, Inspiration, Lungs Clear, No Accessory Muscle Use, No Respiratory Distress, Pleural Effusion Cardiovascular: Bradycardia, Irregular, Normal Peripheral Pulses Breast Exam: Deferred Gastrointestinal: No Organomegaly, Non Tender, No Pulsatile Mass, Normal Bowel Sounds, Soft Genitalia: Deferred Pelvic: Deferred Rectal: Deferred Extremities: No calf tenderness, Normal capillary refill, Normal inspection, Normal range of motion, Non-tender, No pedal edema Neurologic: Alert, Depressed Affect, Dizziness, Motor Weakness Cerebellar Function: NOT DONE Reflexes: NOT DONE Skin: Dry, Normal Color, Warm Peripheral Pulses: 1+ carotid (R), 1+ carotid (L) Lymphatic: No Adenopathy EKG EKG : Pulse Rate (adult): 123 [place]: Normal Cardiac Rhythm: Afib Was a procedure done? Was a procedure done?: No Differential Diagnosis (SZ) Seizure: Hypocalcemia, Hypoglycemia, Hyponatremia, Hypoxemia CVA: Electrolyte Imbalance General Weakness: Anemia, CVA, Dehydration, Dysrhythmia, Electrolyte imbalance, Hypoglycemia, Hypotension, Hypovolemia, Myocardial infarction, Pulmonary embolus, Repiratory failure, TIA Headache: N/A X-Ray, Labs, Meds, VS Vital Signs Date Time Temp Pulse Resp B/P (MAP) Pulse Ox O2 Delivery O2 Flow Rate FiO2 03/01/25 19:58 98.8 124 13 119/72 (88) 97 98.8 03/01/25 19:58 124 13 97 Nasal Cannula* 3 32 03/01/25 18:37 102 03/01/25 18:37 102 23 95 Nasal Cannula* 2 28 03/01/25 18:00 126 15 128/80 (96) 95 03/01/25 17:45 98.9 125 18 144/90 (108) 94 98.9 03/01/25 17:24 102.9 127 18 143/88 92 102.9 Lab Test 03/01/25 18:00 03/01/25 17:45 Range/Units White Blood Count 6.4 4.4-10.8 10^3/uL Red Blood Count 4.81 4.5-5.90 10^6/uL Hemoglobin 14.6 13.5-17.5 g/dL Hematocrit 44.3 41.0-53.0 % Mean Corpuscular Volume 92.1 80.0-100.0 fL Mean Corpuscular Hemoglobin 30.5 28.0-32.0 pg Mean Corpuscular Hemoglobin Concent 33.1 32.0-36.0 g/dL Red Cell Distribution Width 15.3 H 11.8-14.3 % Platelet Count 161 140-450 10^3/uL Mean Platelet Volume 8.6 6.9-10.8 fL Neutrophils (%) (Auto) 75.0 37.0-80.0 % Lymphocytes (%) (Auto) 7.5 L 10.0-50.0 % Monocytes (%) (Auto) 16.6 H 0.0-12.0 % Eosinophils (%) (Auto) 0.2 0.0-7.0 % Basophils (%) (Auto) 0.7 0.0-2.0 % Neutrophils # (Auto) 4.8 1.6-8.6 10 ^3/uL Lymphocytes # (Auto) 0.5 0.4-5.4 10 ^3/uL Monocytes # (Auto) 1.1 0-1.3 10 ^3/uL Eosinophils # (Auto) 0 0-0.8 10 ^3/uL Basophils # (Auto) 0 0-0.2 10 ^3/uL Nucleated Red Blood Cells 0.1 % Prothrombin Time 11.4 9.3-11.8 sec Prothrombin Time INR 1.08 0.9-1.15 Activated Partial Thromboplast Time 30.2 24.5-34.5 SEC Sodium Level 137 136-145 mmol/L Potassium Level 3.4 L 3.5-5.1 mmol/L Chloride Level 101 98-107 mmol/L Carbon Dioxide Level 25 20-31 mmol/L Anion Gap 11 5-15 Blood Urea Nitrogen 12 9-23 mg/dL Creatinine 1.07 0.700-1.30 mg/dL Glomerular Filtration Rate Calc 71 >90 mL/min BUN/Creatinine Ratio 11.2 10.0-20.0 Serum Glucose 227 H 74-106 mg/dL Lactic Acid Level 1.7 0.4-2.0 mmol/L Calcium Level 9.1 8.7-10.4 mg/dL Magnesium Level 1.8 1.6-2.6 mg/dL Total Bilirubin 0.6 0.2-1.0 mg/dL Aspartate Amino Transferase (AST) 21 13-40 U/L Alanine Aminotransferase (ALT) 15 7-40 U/L Alkaline Phosphatase 72 46-116 U/L Total Protein 8.1 5.7-8.2 g/dL Albumin 4.4 3.2-4.8 g/dL Troponin I High Sensitivity 10 </=54 ng/L Current Medications Medications (Trade) Dose Ordered Sig/[place] Route Start Time Stop Time Status Last Admin Sodium Chloride 500 ml @ 500 mls/hr Q1H ONCE IVB 03/01/25 17:45 03/01/25 18:44 DC 03/01/25 17:45 Sodium Chloride 1,000 ml @ 150 mls/hr Q6H40M ONCE IV 03/01/25 17:45 03/02/25 00:24 03/01/25 17:45 Ceftriaxone Sodium 50 ml @ 100 mls/hr ONCE ONCE IV 03/01/25 21:00 03/01/25 21:29 03/01/25 21:00 [facility] [id number] [place] [id number] Ph: [phone] DIAGNOSTIC IMAGING Diagnostic Imaging Report : [id number] Signed PATIENT: MARISABEL GARCIA ACCT: [id number] UNIT: [id number] : 1945 LOC: ER ROOM / BED: / AGE / SEX: 79 / M ADM STATUS: REG ER SERVICE [id number] ORDERING PHYSICIAN: SHERRI SAMANIEGO MD PROCEDURE(s): CXR1 - CHEST XRAY 1 VIEW REASON: fever ORDER NUMBER(s): [id number], ACCESSION NUMBER(s): [id number] CHEST RADIOGRAPH Indication: fever Technique: Single frontal view of the chest was obtained Comparison: None FINDINGS: Lines and Tubes: None Lungs: Left lower lobe airspace disease in the retrocardiac area with left pleural effusion. Pleura: No effusion. No pneumothorax. Cardiomediastinal contours: Unremarkable Bones: Right shoulder prosthesis in place. IMPRESSION: 1. Left lower lobe airspace disease with poor visualization of the left diaphragm in the small left pleural effusion. ATED BY: CHARLENE KRAFT Jr., DO DICTATED DATE/TIME: 03/01/251831 SIGNED BY: CHARLENE KRAFT Jr., DO SIGNED DATE/TIME: 03/01/251831 CC: Time of 1ST Reevaluation: 18:00 Reevaluation 1ST: Unchanged Time of 2ND Reevaluation: 21:25 Reevaluation 2ND: Unchanged Patient Education/Counseling: Diagnosis, Treatment, Prognosis, Need For Follow Up Family Education/Counseling: Diagnosis, Treatment, Prognosis, Need For Follow Up, No Family Present Departure 1 Departure Time of Disposition: 21:26 Impression: Primary Impression: Uncontrolled atrial fibrillation Additional Impressions: Left lower lobe pneumonia Qualified Codes: J18.9 - Pneumonia, unspecified organism Pleural effusion, left Hyperglycemia due to diabetes mellitus Disposition: ADMITTED INPATIENT Admit to: Tele Condition: Serious Critical Care Note Critical Care Time?: No Stability Stability form required: No Heart Score Heart Score: Heart Score Response (Comments) Value History Slightly Suspicious 0 EKG Repolarization Disturb 1 Age >65 2 Risk Factors >3 or Hx ASHD 2 Troponin Normal limit 0 Total 5 I personally scribed for SHERRI SAMANIEGO MD ([email or web address]) on 03/01/25 at 21:21. Electronically submitted by Yemi Bullock ([email or web address]). SHERRI SAMANIEGO MD Mar 01, 2025 21:21
[2025-03-01 22:15] LABS: Urine Protein, UAD TRACE (Negative)
[2025-03-01] MEDS ORDERED: MORPHINE SULFATE INJ 2 MG/ml SYRG IV PRN (23:00)
[2025-03-01] MEDS ORDERED: ONDANSETRON HCL 4 MG/2 ML VIAL IV PRN (23:00)
[2025-03-01] MEDS ORDERED: NITROGLYCERIN 0.4 MG SL TAB SL PRN (23:00)
[2025-03-01] MEDS ORDERED: HYDROcodone-ACET 5/325MG TAB PO PRN (23:00)
[2025-03-01] MEDS: SODIUM CHLORIDE 0.9% 1,000 ML IV SCH (23:00)
[2025-03-01] MEDS ORDERED: DEXTROSE (50%) 50ML SYRG IV PRN (23:00)
[2025-03-01] MEDS ORDERED: DOCUSATE SOD 100 MG CAP PO PRN (23:00)
[2025-03-02] VITALS (8 sets, daily range): BP systolic 107–122; BP diastolic 65–85; PULSE 67–124; RESP 11–20; TEMP 98.8–100.4; O2SAT 95–99
--- NOTE | 2025-03-02 00:29 | ECG ---
[facility] Test Date: 2025-03-01 Test Time: 21:03:27 Pat Name: MARISABEL GARCIA Department: [facility] ED Room: [address] [place] [address] Gender: M Weaver Hand: ALBERTO : 1945 Requested By: SHERRI SAMANIEGO Order Number: [id number] Reading MD: Tone Wright Measurements Intervals [place] Rate: 123 P: -83 MA: 110 QRS: -16 QRSD: 87 T: 36 QT: 391 QTc: 560 Interpretive Statements Sinus or ectopic atrial tachycardia Borderline left axis deviation Low voltage, precordial leads Borderline repolarization abnormality Prolonged QT interval Electronically Signed On 03-02-2025 15:17:50 PDT by Tone Wright Please click the below link to view image of tracing.
[2025-03-02 00:48] LABS: COVID19 ANTIGEN SOFIA FIA POSITIVE (NEGATIVE)
[2025-03-02] MEDS: MAGNESIUM SULFATE 1GM/100ML 100 ML IV ONE (01:00)
[2025-03-02] MEDS: POTASSIUM CHL 20 Meq TABLET PO ONE (01:00)
[2025-03-02] MEDS ORDERED: IPRATROPIUM BROM 0.5 MG/2.5ML INH SOL NEB PRN (01:00)
[2025-03-02] MEDS ORDERED: ALBUTEROL SULF 2.5 MG/0.5ML(0.5%) NEB SOLN NEB PRN (01:00)
--- NOTE | 2025-03-02 01:12 | DVHHP2 ---
CHELSI MENA BRIGHT CUTTER 03/02/25 0112: History of Present Illness Reason for Visit: Generalized weakness History of Present Illness 79-year-old male with past medical history of DM, AFib on Eliquis, HLD, hypertension presents with complaints of generalized weakness, dizziness, lightheadedness x3 days. Patient is also endorsing cough and congestion. Patient did endorsed that he has also been having recent medication adjustments in an effort to try to control his AFib. States his wireless team member is Dr. Wright. States he is normally not very active. On arrival to the emergency department patient is noted to have a temperature 102.9, HR 127, BP 143/88, oxygen saturation 90-92 requiring supplemental oxygen. During the emergency department evaluation W 6.4, H&H 14.6/44.3, PLT 161, Na 137, K3.4, BUN 12, creatinine 1.07, GFR 71 troponin -10. I ordered influenza and COVID swabs which turned out to be positive for COVID-19. CXR impression reads left lower lobe airspace disease with poor visualization of the left diaphragm in the small left pleural effusion. At this time patient denies chest pain, palpitations, nausea, vomiting, diarrhea. Cardiovascular: AFIB, HTN, hyperipidemia Endocrine: Diabetes Smoke: No ALCOHOL: none Drugs: None Lives: with Family Review of Systems Constitutional: Yes: Fever, Weakness, Malaise; No: Chills, Sweats, Other Eyes: No: Pain, Vision change, Conjunctivae inflammation, Eyelid inflammation, Other, Redness ENT: No: Ear pain, Ear discharge, Nose pain, Nose discharge, Nose congestion, Mouth pain, Mouth swelling, Throat pain, Throat swelling, Other Respiratory: Cough, Shortness of breath, Sputum; No: Dry, SOB with excertion, Wheezing, Hemoptysis, Pleuritic Pain, Wheezing, Other Cardiovascular: Lt Headedness; No: Chest Pain, Palpitations, Orthopnea, Paroxysmal Noc. Dyspnea, Edema, Other Gastrointestinal: No: Nausea, Vomiting, Abdominal Pain, Diarrhea, Constipation, Melena, Hematochezia, Other Genitourinary: No Dysuria, No Frequency, No Incontinence, No Hematuria, No Retention, No Other Musculoskeletal: No: other, neck pain, shoulder pain, arm pain, back pain, hand pain, leg pain, foot pain Skin: No: Rash, Lesions, Jaundice, Bruising, Other Neurological: No: Weakness, Numbness, Incoordination, Change in speech, Confusion, Seizures, Other Allergies: Coded Allergies: NO KNOWN ALLERGIES (Unverified , 11/06/24) Medications Current Medications Medications Dose Ordered Sig/[place] Route Start Time Stop Time Status Last Admin Dose Admin Sodium Chloride 1,000 ml @ 100 mls/hr Q10H IV 03/01/25 23:00 03/01/25 23:00 100 MLS/HR Docusate Sodium 100 mg BIDPRN PRN PO 03/01/25 23:00 Acetaminophen 650 mg Q6HP PRN PO 03/01/25 23:00 Acetaminophen/ Hydrocodone Bitart 1 tab Q4HP PRN PO 03/01/25 23:00 Ondansetron HCl 4 mg Q4HP PRN IV 03/01/25 23:00 Nitroglycerin 0.4 mg Q5MINP PRN SL 03/01/25 23:00 Morphine Sulfate 2 mg Q30M PRN IV 03/01/25 23:00 Diagnostic Test (Pha) 1 strip ACHS 03/02/25 07:00 Insulin Human Regular ACHS SC 03/02/25 07:00 Dextrose 50 ml UD PRN IV 03/01/25 23:00 Apixaban 5 mg BID PO 03/02/25 10:00 Patient Own Medication 400 mg BID PO 03/02/25 10:00 UNV Metoprolol Tartrate 50 mg BID PO 03/02/25 10:00 Metoprolol Tartrate 2.5 mg Q6HR PRN IV 03/01/25 23:00 Azithromycin 250 ml @ 125 mls/hr DAILY IV 03/02/25 10:00 Ceftriaxone Sodium 50 ml @ 100 mls/hr DAILY IV 03/02/25 10:00 Guaifenesin/ Dextromethorphan 10 ml Q4HP PRN PO 03/02/25 01:00 Albuterol 1.25 mg Q4HPRN PRN NEB 03/02/25 01:00 Ipratropium [place] 0.5 mg Q4HPRN PRN NEB 03/02/25 01:00 Exam Vital Signs Vital Signs Date Time Temp Pulse Resp B/P (MAP) Pulse Ox O2 Delivery O2 Flow Rate FiO2 03/01/25 23:00 124 15 122/85 (97) 97 03/01/25 19:58 98.8 98.8 03/01/25 19:58 Nasal Cannula* 3 32 General Appearance: Alert, Oriented X3, Cooperative, moderate distress HEENT: Atraumatic, PERRLA, EOMI Respiratory: Other (Diminished air exchange) Cardiovascular: Normal S1, Normal S2, Other (AFib 120s) Abdominal: Soft, No tenderness Extremities: No clubbing, No cyanosis, No edema Skin: No breakdown Neuro: Normal speech, Strength at 5/5 X4 ext Psych/Mental Status: Mental status NL, Mood NL Labs/Xrays Labs Test 03/01/25 23:10 03/01/25 21:30 03/01/25 18:00 03/01/25 17:45 Range/Units Influenza Type A Antigen Negative Negative Influenza Type B Antigen Negative Negative SARS-CoV-2 Antigen (Rapid) Positive *A NEGATIVE Urine Color Light-yellow Yellow Urine Clarity Clear Clear Urine pH 5.0 5.0-9.0 Urine Specific [place] 1.031 1.001-1.035 Urine Protein Trace H Negative Urine Ketones 1+ H Negative Urine Blood Trace H Negative /uL Urine Nitrite Negative Negative Urine Bilirubin Negative Negative Urine Urobilinogen Normal Negative mg/dL Urine Leukocyte Esterase Negative Negative /uL Urine RBC 1 0 - 3 /hpf Urine Microscopic WBC 1 0-3 /HPF Urine Squamous Epithelial Cells None seen <5 /hpf Urine Bacteria None seen None Seen /hpf Urine Glucose 4+ H Normal mg/dL White Blood Count 6.4 4.4-10.8 10^3/uL Red Blood Count 4.81 4.5-5.90 10^6/uL Hemoglobin 14.6 13.5-17.5 g/dL Hematocrit 44.3 41.0-53.0 % Mean Corpuscular Volume 92.1 80.0-100.0 fL Mean Corpuscular Hemoglobin 30.5 28.0-32.0 pg Mean Corpuscular Hemoglobin Concent 33.1 32.0-36.0 g/dL Red Cell Distribution Width 15.3 H 11.8-14.3 % Platelet Count 161 140-450 10^3/uL Mean Platelet Volume 8.6 6.9-10.8 fL Neutrophils (%) (Auto) 75.0 37.0-80.0 % Lymphocytes (%) (Auto) 7.5 L 10.0-50.0 % Monocytes (%) (Auto) 16.6 H 0.0-12.0 % Eosinophils (%) (Auto) 0.2 0.0-7.0 % Basophils (%) (Auto) 0.7 0.0-2.0 % Neutrophils # (Auto) 4.8 1.6-8.6 10 ^3/uL Lymphocytes # (Auto) 0.5 0.4-5.4 10 ^3/uL Monocytes # (Auto) 1.1 0-1.3 10 ^3/uL Eosinophils # (Auto) 0 0-0.8 10 ^3/uL Basophils # (Auto) 0 0-0.2 10 ^3/uL Nucleated Red Blood Cells 0.1 % Prothrombin Time 11.4 9.3-11.8 sec Prothrombin Time INR 1.08 0.9-1.15 Activated Partial Thromboplast Time 30.2 24.5-34.5 SEC Sodium Level 137 136-145 mmol/L Potassium Level 3.4 L 3.5-5.1 mmol/L Chloride Level 101 98-107 mmol/L Carbon Dioxide Level 25 20-31 mmol/L Anion Gap 11 5-15 Blood Urea Nitrogen 12 9-23 mg/dL Creatinine 1.07 0.700-1.30 mg/dL Glomerular Filtration Rate Calc 71 >90 mL/min BUN/Creatinine Ratio 11.2 10.0-20.0 Serum Glucose 227 H 74-106 mg/dL Lactic Acid Level 1.7 0.4-2.0 mmol/L Calcium Level 9.1 8.7-10.4 mg/dL Magnesium Level 1.8 1.6-2.6 mg/dL Total Bilirubin 0.6 0.2-1.0 mg/dL Aspartate Amino Transferase (AST) 21 13-40 U/L Alanine Aminotransferase (ALT) 15 7-40 U/L Alkaline Phosphatase 72 46-116 U/L Total Protein 8.1 5.7-8.2 g/dL Albumin 4.4 3.2-4.8 g/dL Troponin I High Sensitivity 10 </=54 ng/L SEPSIS Sepsis Screen Date sepsis recognized/suspect: Mar 01, 2025 Time Sepsis recognized/suspect: 2027 Recent Procedure: No On Antibiotic Therapy: No Respiratory Rate >20: No Heart Rate >90: Yes Temp<36 C (96.8 F) or >38.3 C: No SBP <90 or MAP <65 mmHG: No New Acute Mental Status Change: No Is the patient on CPAP, BIPAP,: No Physician Orders Blood Culture (03/01/25 17:30) Underwriting Consultant (03/01/25 17:39) Pulse Oximetry (03/01/25 17:39) Blood Pressure (03/01/25 17:39) Heplock Iv (03/01/25 17:39) Chest Xray 1 View (03/01/25 17:39) Admit (03/01/2558) Code Status (03/01/25) Vital Signs .PER UNIT PROTOCOL (03/01/25) Review Orders With Adm. (03/01/25) Encourage Activity As Tolerate (03/01/25) Consistent Carb(Ccho)Diabetes (03/02/25 Breakfast) Sodium Chloride 0.9% (03/01/25 23:00) Oxygen By Face Mask (03/01/2558) Docusate Sodium Capsule (Colace Capsule) (03/01/25 23:00) Acetaminophen Tablet (Tylenol Tablet) (03/01/25 23:00) Notify Md Of Changes From Base (03/01/25:58) Advance Directive (03/01/25) Echo 2d Mode Cardiac Dop (03/01/25:58) Basic Metabolic Panel (03/02/25 05:00) Basic Metabolic Panel (03/03/25 05:00) Basic Metabolic Panel (03/04/25 05:00) Basic Metabolic Panel (03/05/25 05:00) Complete Blood Count (03/02/25 05:00) Complete Blood Count (03/03/25 05:00) Complete Blood Count (03/04/25 05:00) Complete Blood Count (03/05/25 05:00) Patient Condition (03/01/2558) Allergies (03/01/25:58) Hydrocodone-Acet 5/325mg Tab ([place] 5/32 (03/01/25 23:00) Ondansetron Hcl (Zofran) (03/01/25 23:00) Nitroglycerin Sublingual (Ntrostat Subli (03/01/25 23:00) Morphine Sulfate Injection (03/01/25 23:00) Stat Ekg For Chest Pain (03/01/25 22:58) Notify Md Of Changes From Base (03/01/25 22:58) Street Cleaning Equipment Operator For 24 Hours (03/01/25 22:58) Emergency Dysrhythmia Protocol (03/01/25 22:58) Rhythm Strips Once Every Shift (03/01/25 22:58) Oxygen By Nasal Cannula (03/01/25 22:58) Glucose Blood (Accu-Chek Comfort Curve T (03/02/25 07:00) Insulin R (Human) (Insulin R) (03/02/25 07:00) Dextrose 50% Syringe (03/01/25 23:00) Apixaban (Eliquis) (03/02/25 10:00) (Nf) Multaq (03/02/25 10:00) Metoprolol Tartrate Tablet (Lopressor Ta (03/02/25 10:00) Metoprolol Inj (Lopressor) (03/01/25 23:00) Azithromycin 500mg/ 250ml (Zithromax 50 (03/02/25 10:00) Ceftriaxone 1gm/50ml (Rocephin) (03/02/25 10:00) * Cardiology Consult (03/01/25 22:58) *Consult (03/01/25 22:58) Guaifenesin-Dextromet Liquid (Robitussin (03/02/25 01:00) Magnesium Sulfate 1gm/100ml (03/02/25 01:00) Albuterol Medneb (Ventolin Medneb) (03/02/25 01:00) Ipratropium Medneb (Atrovent Medneb) (03/02/25 01:00) Vital Signs Date Time Temp Pulse Resp B/P (MAP) Pulse Ox O2 Delivery O2 Flow Rate FiO2 03/01/25 23:00 124 15 122/85 (97) 97 03/01/25 21:32 123 03/01/25 21:03 123 03/01/25 21:00 124 17 122/77 (92) 95 03/01/25 19:58 98.8 124 13 119/72 (88) 97 98.8 03/01/25 19:58 124 13 97 Nasal Cannula* 3 32 03/01/25 18:37 102 03/01/25 18:37 102 23 95 Nasal Cannula* 2 28 03/01/25 18:00 126 15 128/80 (96) 95 03/01/25 17:45 98.9 125 18 144/90 (108) 94 98.9 03/01/25 17:24 102.9 127 18 143/88 92 102.9 Laboratory Tests Test 03/01/25 18:00 Lactic Acid Level 1.7 mmol/L (0.4-2.0) White Blood Count 6.4 10^3/uL (4.4-10.8) Medications Medications Dose Ordered Sig/[place] Route Start Time Stop Time Status Last Admin Dose Admin Ceftriaxone Sodium 50 ml @ 100 mls/hr ONCE ONCE IV 03/01/25 21:00 03/01/25 21:29 DC 03/01/25 21:00 100 MLS/HR Sodium Chloride 500 ml @ 500 mls/hr Q1H ONCE IVB 03/01/25 17:45 03/01/25 18:44 DC 03/01/25 17:45 500 MLS/HR Sodium Chloride 1,000 ml @ 100 mls/hr Q10H IV 03/01/25 23:00 03/01/25 23:00 100 MLS/HR Sodium Chloride 1,000 ml @ 150 mls/hr Q6H40M ONCE IV 03/01/25 17:45 03/01/25 23:12 DC 03/01/25 17:45 150 MLS/HR Assessment/Plan Assessment/Plan Uncontrolled AFIB Hypoxia Left lobe pneumonia Covid positive DM with hyperglycemia Plan Admit telemetry Cardiology consult. Echocardiogram. Continue home medication. As needed antiarrhythmics. Consult pulmonology. Bronchodilators. As needed, supplemental O2 to maintain oxygen saturation greater than 93%. CV 19 protocol. Blood glucose check with regular insulin sliding scale coverage GI ppx protonix / dvt ppx on oral anticoagulation. Plan discussed with: Patient My Orders Orders - CHELSI MENA NP Procedure Category Date Status Time Admit ADMIT 03/01/25 Transmitted 22:58 Code Status CODE 03/01/25 Transmitted 22:58 Vital Signs OFELIA 03/01/25 In Process 22:58 Review Orders With OFELIA 03/01/25 In Process Adm. 22:58 Encourage Activity As OFELIA 10/26/25 In Process Tolerate 22:58 Consistent DIET 03/02/25 Transmitted Carb(Ccho)Diabetes Breakfast Sodium Chloride 0.9% PHA 03/01/25 In Process 23:00 Oxygen By Face Mask RT 03/01/25 Transmitted 22:58 Docusate Sodium PHA 03/01/25 In Process Capsule (Colace 23:00 Acetaminophen Tablet PHA 03/01/25 In Process (Tylenol Tablet) 23:00 Notify Of Changes OFELIA 03/01/25 In Process From Base 22:58 Advance Directive OFELIA 03/01/25 In Process 22:58 Echo 2d Mode Cardiac US 03/01/25 Logged DOP 22:58 Basic Metabolic Panel LAB 03/02/25 Logged 05:00 Basic Metabolic Panel LAB 03/03/25 Verified 05:00 Basic Metabolic Panel LAB 03/04/25 Verified 05:00 Basic Metabolic Panel LAB 03/05/25 Verified 05:00 Complete Blood Count LAB 03/02/25 Logged 05:00 Complete Blood Count LAB 03/03/25 Verified 05:00 Complete Blood Count LAB 03/04/25 Verified 05:00 Complete Blood Count LAB 03/05/25 Verified 05:00 Patient Condition ORDERS 03/01/25 Transmitted 22:58 Allergies OFELIA 03/01/25 In Process 22:58 Hydrocodone-Acet PHA 03/01/25 In Process 5/325mg Tab ([place] 23:00 Ondansetron Hcl PHA 03/01/25 In Process (Zofran) 23:00 Nitroglycerin PHA 03/01/25 In Process Sublingual (Ntrostat 23:00 Morphine Sulfate PHA 03/01/25 In Process Injection 23:00 Stat Ekg For Chest OFELIA 03/01/25 In Process Pain 22:58 Notify Of Changes OFELIA 03/01/25 In Process From Base 22:58 Street Cleaning Equipment Operator For OFELIA 03/01/25 In Process 24 Hours 22:58 Emergency Dysrhythmia OFELIA 03/01/25 In Process Protocol 22:58 Rhythm Strips Once OFELIA 03/01/25 In Process Every Shift 22:58 Oxygen By Nasal RT 03/01/25 Transmitted Cannula 22:58 Glucose Blood PHA 03/02/25 In Process (Accu-Chek Comfort 07:00 Insulin R (Human) PHA 03/02/25 In Process (Insulin R) 07:00 Dextrose 50% Syringe PHA 03/01/25 In Process 23:00 Apixaban (Eliquis) PHA 03/02/25 In Process 10:00 (Nf) Multaq PHA 03/02/25 Pending 10:00 Metoprolol Tartrate PHA 03/02/25 In Process Tablet (Lopressor Ta 10:00 Metoprolol Inj PHA 03/01/25 In Process (Lopressor) 23:00 Azithromycin 500mg/ PHA 03/02/25 In Process 250ml (Zithromax 50 10:00 Ceftriaxone 1gm/50ml PHA 03/02/25 In Process (Rocephin) 10:00 * Cardiology Consult CONS 03/01/25 Transmitted 22:58 *Consult CONS 03/01/25 Transmitted 22:58 Guaifenesin-Dextromet PHA 03/02/25 In Process Liquid (Robitussin 01:00 Magnesium Sulfate PHA 03/02/25 In Process 1gm/100ml 01:00 Albuterol Medneb PHA 03/02/25 In Process (Ventolin Medneb) 01:00 Ipratropium Medneb PHA 03/02/25 In Process (Atrovent Medneb) 01:00 Date of Service: Mar 02, 2025 Billing Provider: ALEXANDRU HERRERA MD Common Visit Codes: NOT BILLABLE ALEXANDRU HERRERA MD 03/03/25 1629: Review of Systems Allergies: Coded Allergies: NO KNOWN ALLERGIES (Unverified , 11/06/24) CHELSI MENA NP Mar 02, 2025 01:12 ALEXANDRU HERRERA MD Mar 03, 2025 16:29
[2025-03-02 05:04] LABS: Hematocrit 41.6 % (41.0-53.0); Hemoglobin 13.7 g/dL (13.5-17.5); Mean Corpuscular Hemoglobin 31.0 pg (28.0-32.0); Mean Corpuscular Volume 94.3 fL (80.0-100.0)
[2025-03-02 05:06] LABS: Chloride 105 mmol/L (98-107); Potassium 3.6 mmol/L (3.5-5.1); Sodium 140 mmol/L (136-145)
[2025-03-02 05:08] LABS: Anion Gap 9 (5-15); Carbon Dioxide 26 mmol/L (20-31)
[2025-03-02 05:13] LABS: BUN/Creatinine Ratio 11.9 (10.0-20.0); Blood Urea Nitrogen 10 mg/dL (9-23)
[2025-03-02 05:30] LABS: Calcium 8.3 mg/dL (8.7-10.4); Glucose 146 mg/dL (74-106)
[2025-03-02 06:13] LABS: Total Cells Counted 100.0 (100)
[2025-03-02] MEDS: ACCU-CHEK COMFORT CURVE STRIP VI SCH (06:48)
[2025-03-02] MEDS: InsuLIN REG 1unit/0.01ml Soln (100units/ml) SC SCH (06:51)
[2025-03-02] MEDS: METOPROLOL TARTRATE 50 MG TAB PO SCH (11:01)
[2025-03-02] MEDS: MULTAQ 400 MG PO SCH (11:01)
[2025-03-02] MEDS: APIXABAN 5 MG TAB PO SCH (11:01)
[2025-03-02] MEDS: AZITHROMYCIN 500MG/ 250ML 250 ML IV SCH (11:30)
[2025-03-02] MEDS: guaiFENesin-DM 100/10mg/5ml SYR PO PRN (11:35)
--- NOTE | 2025-03-02 18:22 | DVHINCON2 ---
Date of service: Mar 02, 2025 Referring Physician BAYLEE Moon Reason for Consultation Pneumonia, COVID-19 positive, acute hypoxic respiratory failure. History of Present Illness A 79-year-old man with past medical history of AFib on Eliquis, diabetes mellitus, hyperlipidemia and hypertension who presented to ED on 03/01/25 with complaints of generalized weakness, dizziness, lightheadedness x3 days. Patient also c/o cough and congestion. He reported that he has also been having recent medication adjustments in an effort to try to control his AFib. His electricity trader is Dr. Wright. Initial vitals in ED showed temperature of 102.9, HR 127, BP 143/88, oxygen saturation 90-92 requiring supplemental oxygen. Labs showed WBC 6.4, H&H 14.6/44.3, PLT 161, Na 137, K3.4, BUN 12, creatinine 1.07, GFR 71, troponin -10. Influenza and COVID swabs returned positive for COVID-19. CXR revealed left lower lobe airspace disease with poor visualization of the left diaphragm and small left pleural effusion. Patient denied chest pain, palpitations, nausea, vomiting, or diarrhea. He was admitted for further care. Pulmonary consultation is requested for evaluation and management of pneumonia, acute hypoxic respiratory failure, positive COVID-19. Review of Systems: 14-point review of systems negative unless otherwise noted above. Past Medical History: AFib on Eliquis, diabetes mellitus, hyperlipidemia and hypertension Past Surgical History: None Medications: Reviewed. Allergies: No known drug allergies. Family History: Heart disease, diabetes Social History: Nonsmoker. No alcohol or illicit drug use. Family History: Cardiovascular disease G8 MOTHER Diabetes mellitus G8 MOTHER Allergies: Coded Allergies: NO KNOWN ALLERGIES (Unverified , 11/06/24) Home Meds Reported Medications Multiple Vitamin (Multivitamins) Tab, 1 TAB PO DAILY, #30 TAB 2 Refills 11/06/24 Nifedipine (Nifedipine Er) 30 Mg Tab, 30 MG PO DAILY, TAB 11/06/24 Atorvastatin Calcium (ATORVASTATIN CALCIUM) 20 Mg Tab, 20 MG PO DAILY, TAB 11/06/24 Potassium Chloride (POTASSIUM CHLORIDE CR) 10 Meq Tb, 20 MEQ PO DAILY, TAB 11/06/24 Empagliflozin (Jardiance) 25 Mg Tab, 25 MG PO DAILY, TAB 11/06/24 Sitagliptin Phosphate (Januvia) 100 Mg Tab, 100 MG PO DAILY, TAB 11/06/24 Metformin Hydrochloride (Metformin Hcl) 1,000 Mg Tab, 1000 MG PO DAILY, TAB 11/06/24 Glipizide (Glipizide) 10 Mg Tab, 10 MG PO BID, TAB 11/06/24 Spironolactone (Spironolactone) 25 Mg Tab, 25 MG PO DAILY, TAB 11/06/24 Dronedarone Hydrochloride (Multaq) 400 Mg Tab, 400 MG PO BID, TAB 11/06/24 Apixaban Base (ELIQUIS) 5 Mg Tab, 5 MG PO BID, TAB 11/06/24 Metoprolol Tartrate (LOPRESSOR TABLET) 50 Mg Tb, 25 MG GT BID, TAB 11/06/24 Current Medications Current Medications Medications (Trade) Dose Ordered Sig/[place] Route PRN Reason Start Time Stop Time Status Last Admin Sodium Chloride 1,000 ml @ 100 mls/hr Q10H IV 03/01/25 23:00 03/02/25 09:17 Docusate Sodium (Colace Capsule) 100 mg BIDPRN PRN PO FOR CONSTIPATION 03/01/25 23:00 Acetaminophen (Tylenol Tablet) 650 mg Q6HP PRN PO PAIN SCALE 1-3 OR TEMP>100.4 03/01/25 23:00 Acetaminophen/ Hydrocodone Bitart ([place] 5/325MG Tab) 1 tab Q4HP PRN PO MODERATE PAIN (4-6 PAIN SCALE) 03/01/25 23:00 Ondansetron HCl (Zofran) 4 mg Q4HP PRN IV NAUSEA / VOMITING 03/01/25 23:00 Nitroglycerin (Ntrostat Sublingual) 0.4 mg Q5MINP PRN SL FOR CHEST PAIN 03/01/25 23:00 Morphine Sulfate 2 mg Q30M PRN IV FOR CHEST PAIN 03/01/25 23:00 Diagnostic Test (Pha) (Accu-Chek Comfort Curve T) 1 strip ACHS 03/02/25 07:00 03/02/25 16:53 Insulin Human Regular (InsuLIN R) ACHS SC 03/02/25 07:00 03/02/25 17:32 Dextrose 50 ml UD PRN IV Blood Sugar LESS THAN 60 03/01/25 23:00 Apixaban (Eliquis) 5 mg BID PO 03/02/25 10:00 03/02/25 11:01 Patient Own Medication 400 mg BID PO 03/02/25 10:00 Metoprolol Tartrate (Lopressor Tablet) 50 mg BID PO 03/02/25 10:00 03/02/25 11:01 Metoprolol Tartrate (Lopressor) 2.5 mg Q6HR PRN IV Sustained HR > 125 03/01/25 23:00 Azithromycin 250 ml @ 125 mls/hr DAILY IV 03/02/25 10:00 03/02/25 11:30 Ceftriaxone Sodium 50 ml @ 100 mls/hr DAILY IV 03/02/25 10:00 03/02/25 11:00 Guaifenesin/ Dextromethorphan (Robitussin-Dm Liquid) 10 ml Q4HP PRN PO FOR COUGH 03/02/25 01:00 03/02/25 17:28 Albuterol (Ventolin Medneb) 1.25 mg Q4HPRN PRN NEB SHORTNESS OF BREATH 03/02/25 01:00 Ipratropium [place] (Atrovent Medneb) 0.5 mg Q4HPRN PRN NEB SHORTNESS OF BREATH 03/02/25 01:00 Vital Signs Vital Signs Date Time Temp Pulse Resp B/P (MAP) Pulse Ox O2 Delivery O2 Flow Rate FiO2 03/02/25 16:30 98.9 75 20 107/66 (80) 99 98.9 03/02/25 14:20 Nasal Cannula* 3 32 Physical Exam Gen.: Patient lying in bed in no apparent distress. On supplemental oxygen. Head: Normocephalic, atraumatic. Eyes: EOMI/PERRLA. Ears: Normal hearing. Normal anatomy. Neck/trachea: Trachea midline, supple. Nose: Normal external anatomy. Mouth: Moist mucous membranes. Chest: Decreased air entry bilaterally. No wheezing or rhonchi. Cardiovascular: Positive S1, positive S2. Regular rate and rhythm. Abdomen: Positive bowel sounds in all 4 quadrants. Soft, non-tender, non- distended. : Deferred. Rectal: Deferred. Skin: Warm, dry. Intact. Extremities: 2+ radial pulses bilaterally. No lower extremity edema. Neuro: Awake, alert, oriented x3. No gross motor or sensory deficits. Cranial nerves II through XII intact. Gait not assessed. Labs/Diagnostic Data Labs Test 03/02/25 16:23 03/02/25 04:37 03/01/25 23:10 03/01/25 21:30 Range/Units POC Glucose 287 H 70-106 mg/dl White Blood Count 6.2 4.4-10.8 10^3/uL Red Blood Count 4.41 L 4.5-5.90 10^6/uL Hemoglobin 13.7 13.5-17.5 g/dL Hematocrit 41.6 41.0-53.0 % Mean Corpuscular Volume 94.3 80.0-100.0 fL Mean Corpuscular Hemoglobin 31.0 28.0-32.0 pg Mean Corpuscular Hemoglobin Concent 32.9 32.0-36.0 g/dL Red Cell Distribution Width 15.5 H 11.8-14.3 % Platelet Count 133 L 140-450 10^3/uL Mean Platelet Volume 8.5 6.9-10.8 fL Neutrophils (%) (Auto) 37.0-80.0 % Lymphocytes (%) (Auto) 10.0-50.0 % Monocytes (%) (Auto) 0.0-12.0 % Basophils (%) (Auto) 0.0-2.0 % Neutrophils # (Auto) 1.6-8.6 10 ^3/uL Lymphocytes # (Auto) 0.4-5.4 10 ^3/uL Monocytes # (Auto) 0-1.3 10 ^3/uL Differential Total Cells Counted 100.0 100 Neutrophils % (Manual) 63 37.0-80.0 Band Neutrophils % (Manual) 0 Lymphocytes % (Manual) 32 10.0-50.0 Monocytes % (Manual) 5 0-12 Eosinophils % (Manual) 0 0-7 Basophils % (Manual) 0 0.0-2.0 Metamyelocytes % (manual) 0 Myelocytes % (Manual) 0 Promyelocytes % (Manual) 0 Blast Cells % (Manual) 0 Reactive Lymphocytes 0 Platelet Estimate Decreased Sodium Level 140 136-145 mmol/L Potassium Level 3.6 3.5-5.1 mmol/L Chloride Level 105 98-107 mmol/L Carbon Dioxide Level 26 20-31 mmol/L Anion Gap 9 5-15 Blood Urea Nitrogen 10 9-23 mg/dL Creatinine 0.84 0.700-1.30 mg/dL Glomerular Filtration Rate Calc 90 >90 mL/min BUN/Creatinine Ratio 11.9 10.0-20.0 Serum Glucose 146 H 74-106 mg/dL Calcium Level 8.3 L 8.7-10.4 mg/dL Influenza Type A Antigen Negative Negative Influenza Type B Antigen Negative Negative SARS-CoV-2 Antigen (Rapid) Positive *A NEGATIVE Urine Color Light-yellow Yellow Urine Clarity Clear Clear Urine pH 5.0 5.0-9.0 Urine Specific [place] 1.031 1.001-1.035 Urine Protein Trace H Negative Urine Ketones 1+ H Negative Urine Blood Trace H Negative /uL Urine Nitrite Negative Negative Urine Bilirubin Negative Negative Urine Urobilinogen Normal Negative mg/dL Urine Leukocyte Esterase Negative Negative /uL Urine RBC 1 0 - 3 /hpf Urine Microscopic WBC 1 0-3 /HPF Urine Squamous Epithelial Cells None seen <5 /hpf Urine Bacteria None seen None Seen /hpf Urine Glucose 4+ H Normal mg/dL Test 03/01/25 18:00 03/01/25 17:45 Range/Units Eosinophils (%) (Auto) 0.2 0.0-7.0 % Eosinophils # (Auto) 0 0-0.8 10 ^3/uL Basophils # (Auto) 0 0-0.2 10 ^3/uL Nucleated Red Blood Cells 0.1 % Prothrombin Time 11.4 9.3-11.8 sec Prothrombin Time INR 1.08 0.9-1.15 Activated Partial Thromboplast Time 30.2 24.5-34.5 SEC Lactic Acid Level 1.7 0.4-2.0 mmol/L Magnesium Level 1.8 1.6-2.6 mg/dL Total Bilirubin 0.6 0.2-1.0 mg/dL Aspartate Amino Transferase (AST) 21 13-40 U/L Alanine Aminotransferase (ALT) 15 7-40 U/L Alkaline Phosphatase 72 46-116 U/L Total Protein 8.1 5.7-8.2 g/dL Albumin 4.4 3.2-4.8 g/dL Troponin I High Sensitivity 10 </=54 ng/L Microbiology Date/Time Source Procedure Growth Status 03/01/25 17:45 Blood Blood Culture - Preliminary NO GROWTH AFTER 24 HOURS OF INCUBATION. Resulted Assessment Impression: Acute hypoxic respiratory failure Dependence on supplemental oxygen Pneumonia Atelectasis COVID-19 positive. Obesity, BMI 38.4 Plan: Supplemental oxygen Titrate to keep O2 sats above 92%. CXR on 03/01 revealed left lower lobe airspace disease with poor visualization of the left diaphragm and small left pleural effusion. Continue antibiotics Incentive spirometry Follow up cultures Bronchodilators PRN Antitussive for cough On Eliquis PO BID for AFib. Accu-Cheks, ISS Monitor renal function. Monitor electrolytes. Supplement as necessary. Monitor ins and outs. Recommend diet and lifestyle modifications for weight reduction Obesity complicates all care DVT prophylaxis. Prognosis: Poor given patient's multiple co-morbidities. Rest of plan per hospitalist and other consultants. Thank you, BAYLEE Moon, for allowing me to participate in this patient's care. Further recommendations will depend on the patient's clinical course. Please do not hesitate to contact me if you have any questions or concerns. This medical document was created using an electronic medical record system with [employer] dictation system. Although these documentations are being carefully reviewed, there may still be some phonetic and typographical changes. The errors are purely typographical, due to imperfection on the software program, and do not reflect any compromise in the patient's medical care. Plan discussed with: Other (RN/MD) [facility] Mar 02, 2025 18:22
[2025-03-03] VITALS (9 sets, daily range): BP systolic 97–136; BP diastolic 59–82; PULSE 56–85; RESP 15–18; TEMP 97.9–98.7; O2SAT 92–97
[2025-03-03] MEDS: ACETAMINOPHEN 325 MG TAB PO PRN (05:37)
[2025-03-03 06:08] LABS: Hematocrit 39.3 % (41.0-53.0); Hemoglobin 13.0 g/dL (13.5-17.5); Mean Corpuscular Hemoglobin 30.6 pg (28.0-32.0); Mean Corpuscular Volume 92.4 fL (80.0-100.0); Nucleated Red Blood Cells % 0.2 %
[2025-03-03 06:24] LABS: Anion Gap 9 (5-15); Carbon Dioxide 27 mmol/L (20-31); Chloride 102 mmol/L (98-107); Potassium 3.7 mmol/L (3.5-5.1); Sodium 138 mmol/L (136-145)
[2025-03-03 06:25] LABS: Calcium 8.8 mg/dL (8.7-10.4)
[2025-03-03 06:30] LABS: BUN/Creatinine Ratio 15.9 (10.0-20.0); Blood Urea Nitrogen 14 mg/dL (9-23)
[2025-03-03 06:31] LABS: Glucose 176 mg/dL (74-106)
[2025-03-03] MEDS ORDERED: ALBUTEROL SULF HFA 90MCG INH 200DOSE IN PRN (10:00)
--- NOTE | 2025-03-03 16:31 | DVHPN2 ---
Subjective Overnight events noted. Patient is complaining of generalized weakness. Changes from previous H/P or p: No Changes Eyes: No Pain, No Vision change, No Conjunctivae inflammation, No Eyelid inflammation, No Other, No Redness ENT: No Ear pain, No Ear discharge, No Nose pain, No Nose discharge, No Nose congestion, No Mouth pain, No Mouth swelling, No Throat pain, No Throat swelling, No Other Cardiovascular: No Chest Pain, No Palpitations, No Orthopnea, No Paroxysmal Noc. Dyspnea, No Edema; Lt Headedness; No Other Respiratory: Cough; No Dry; Shortness of breath; No SOB with excertion, No Wheezing, No Hemoptysis, No Pleuritic Pain; Sputum; No Other Gastrointestinal: No Nausea, No Vomiting, No Abdominal Pain, No Diarrhea, No Constipation, No Melena, No Hematochezia, No Other Genitourinary: No Dysuria, No Frequency, No Incontinence, No Hematuria, No Retention, No Other Musculoskeletal: No other, No neck pain, No shoulder pain, No arm pain, No back pain, No hand pain, No leg pain, No foot pain Skin: No Rash, No Lesions, No Jaundice, No Bruising, No Other Objective Vitals Vital Signs Date Time Temp Pulse Resp B/P (MAP) Pulse Ox O2 Delivery O2 Flow Rate FiO2 03/03/25 13:00 97.9 67 16 107/70 (82) 95 97.9 03/03/25 09:15 Nasal Cannula 1.0 03/03/25 09:15 24 Intake/Output Intake and Output 03/03/25 07:00 Intake Total 1800 ml Balance 1800 ml Intake Oral 400 ml IV Total 1400 ml # Voids 3 # Bowel Movements 1 Exam HEENT pupils are reactive Neck is supple CV is S1-S2 regular rate and rhythm Respiratory bilateral clear GI positive bowel sound Extremity no edema [employer] no motor deficit Medications Current Medications Medications Dose Ordered Sig/Berkley Route Start Time Stop Time Status Last Admin Dose Admin Sodium Chloride 1,000 ml @ 100 mls/hr Q10H IV 03/01/25 23:00 03/03/25 05:47 100 MLS/HR Docusate Sodium 100 mg BIDPRN PRN PO 03/01/25 23:00 Acetaminophen 650 mg Q6HP PRN PO 03/01/25 23:00 03/03/25 05:37 650 MG Acetaminophen/ Hydrocodone Bitart 1 tab Q4HP PRN PO 03/01/25 23:00 Ondansetron HCl 4 mg Q4HP PRN IV 03/01/25 23:00 Nitroglycerin 0.4 mg Q5MINP PRN SL 03/01/25 23:00 Morphine Sulfate 2 mg Q30M PRN IV 03/01/25 23:00 Diagnostic Test (Pha) 1 strip ACHS 03/02/25 07:00 03/03/25 12:35 1 STRIP Insulin Human Regular ACHS SC 03/02/25 07:00 03/03/25 12:35 4 UNITS Dextrose 50 ml UD PRN IV 03/01/25 23:00 Apixaban 5 mg BID PO 03/02/25 10:00 03/03/25 09:24 5 MG Patient Own Medication 400 mg BID PO 03/02/25 10:00 Metoprolol Tartrate 50 mg BID PO 03/02/25 10:00 03/02/25 22:45 50 MG Metoprolol Tartrate 2.5 mg Q6HR PRN IV 03/01/25 23:00 Azithromycin 250 ml @ 125 mls/hr DAILY IV 03/02/25 10:00 03/03/25 10:17 125 MLS/HR Ceftriaxone Sodium 50 ml @ 100 mls/hr DAILY IV 03/02/25 10:00 03/03/25 09:23 100 MLS/HR Guaifenesin/ Dextromethorphan 10 ml Q4HP PRN PO 03/02/25 01:00 03/02/25 17:28 10 ML Albuterol 180 mcg Q8H PRN IN 03/03/25 10:00 Laboratory Results Laboratory Tests 03/03/25 05:37 Chemistry Test 03/03/25 05:37 Calcium Level 8.8 mg/dL (8.7-10.4) Urinalysis Test 03/01/25 21:30 Urine Color Light-yellow (Yellow) Urine Clarity Clear (Clear) Urine pH 5.0 (5.0-9.0) Urine Specific [place] 1.031 (1.001-1.035) Urine Protein Trace (Negative) H Urine Ketones 1+ (Negative) H Urine Blood Trace /uL (Negative) H Urine Nitrite Negative (Negative) Urine Bilirubin Negative (Negative) Urine Urobilinogen Normal mg/dL (Negative) Urine Leukocyte Esterase Negative /uL (Negative) Urine RBC 1 /hpf (0 - 3) Urine Microscopic WBC 1 /HPF (0-3) Urine Squamous Epithelial Cells None seen /hpf (<5) Urine Bacteria None seen /hpf (None Seen) Urine Glucose 4+ mg/dL (Normal) H Microbiology Microbiology Date/Time Source Procedure Growth Status 03/01/25 18:00 Blood Blood Culture - Preliminary NO GROWTH AFTER 24 HOURS OF INCUBATION. Resulted Assessment/Plan Assessment/Plan 79-year-old male with a known history of chronic AFib currently on anticoagulation, hypertension, diabetes mellitus type 2, dyslipidemia presented to the hospital with generalized weakness shortness a breath found to have 1. Acute hypoxic respiratory failure secondary to COVID-19 pneumonia as well as bacterial pneumonia 2. Left-sided community-acquired pneumonia 3. Acute viral pneumonia with a positive COVID-19 4. Hyperglycemia in the setting of diabetes mellitus type 2 5. Hypertension 6. Dyslipidemia 7. Morbid obesity classII -continue current antibiotics, COVID isolation, physical therapy evaluation and treatment -we will assess home oxygen requirement upon discharge -discharge plan. Plan discussed with: Patient Date of Service: Mar 03, 2025 Billing Provider: ALEXANDRU HERRERA MD Common Visit Codes: NOT BILLABLE ALEXANDRU HERRERA MD Mar 03, 2025 16:31
--- NOTE | 2025-03-03 23:32 | DVHPN2 ---
Progress Note - Dictate Date Seen: Mar 03, 2025 Medical Necessity Reason Pt with a Central, PICC or Fol: No Subjective Patient seen and examined at bedside. Currently breathing on room air. Overnight events reviewed. vital signs Vital Sign Date Time Temp Pulse Resp B/P (MAP) Pulse Ox O2 Delivery O2 Flow Rate FiO2 03/03/25 21:40 70 121/82 03/03/25 21:00 98.1 17 93 98.1 03/03/25 09:15 Nasal Cannula 1.0 03/03/25 09:15 24 Total Intake and Output 03/02/25 03/02/25 03/03/25 15:00 23:00 07:00 Intake Total 1400 ml 100 ml 300 ml Balance 1400 ml 100 ml 300 ml medications Current Medications Medications Dose Ordered Sig/Berkley Route Start Time Stop Time Status Last Admin Dose Admin Sodium Chloride 1,000 ml @ 100 mls/hr Q10H IV 03/01/25 23:00 03/03/25 21:42 100 MLS/HR Docusate Sodium 100 mg BIDPRN PRN PO 03/01/25 23:00 Acetaminophen 650 mg Q6HP PRN PO 03/01/25 23:00 03/03/25 17:48 650 MG Acetaminophen/ Hydrocodone Bitart 1 tab Q4HP PRN PO 03/01/25 23:00 Ondansetron HCl 4 mg Q4HP PRN IV 03/01/25 23:00 Nitroglycerin 0.4 mg Q5MINP PRN SL 03/01/25 23:00 Morphine Sulfate 2 mg Q30M PRN IV 03/01/25 23:00 Diagnostic Test (Pha) 1 strip ACHS 03/02/25 07:00 03/03/25 21:43 1 STRIP Insulin Human Regular ACHS SC 03/02/25 07:00 03/03/25 21:47 6 UNITS Dextrose 50 ml UD PRN IV 03/01/25 23:00 Apixaban 5 mg BID PO 03/02/25 10:00 03/03/25 21:40 5 MG Patient Own Medication 400 mg BID PO 03/02/25 10:00 Metoprolol Tartrate 50 mg BID PO 03/02/25 10:00 03/03/25 21:40 50 MG Metoprolol Tartrate 2.5 mg Q6HR PRN IV 03/01/25 23:00 Azithromycin 250 ml @ 125 mls/hr DAILY IV 03/02/25 10:00 03/03/25 10:17 125 MLS/HR Ceftriaxone Sodium 50 ml @ 100 mls/hr DAILY IV 03/02/25 10:00 03/03/25 09:23 100 MLS/HR Guaifenesin/ Dextromethorphan 10 ml Q4HP PRN PO 03/02/25 01:00 03/03/25 21:55 10 ML Albuterol 180 mcg Q8H PRN IN 03/03/25 10:00 objective Gen.: Patient lying in bed in no apparent distress. Breathing on room air. Head: Normocephalic, atraumatic. Eyes: EOMI/PERRLA. Ears: Normal hearing. Normal anatomy. Neck/trachea: Trachea midline, supple. Nose: Normal external anatomy. Mouth: Moist mucous membranes. Chest: Decreased air entry bilaterally. No wheezing or rhonchi. Cardiovascular: Positive S1, positive S2. Regular rate and rhythm. Abdomen: Positive bowel sounds in all 4 quadrants. Soft, non-tender, non- distended. : Deferred. Rectal: Deferred. Skin: Warm, dry. Intact. Extremities: 2+ radial pulses bilaterally. No lower extremity edema. Neuro: Awake, alert, oriented x3. No gross motor or sensory deficits. Cranial nerves II through XII intact. Gait not assessed. laboratory and microbiology Laboratory Tests 03/03/25 05:37 Test 03/03/25 05:37 Range/Units Serum Glucose 176 H 74-106 mg/dL Assessment/Plan Impression: Acute hypoxic respiratory failure Pneumonia Atelectasis COVID-19 positive. Obesity, BMI 38.4 Events: Tapered off supplemental oxygen Currently breathing on room air No distress. No acute overnight events Continue antibiotics Antitussive for cough Incentive spirometry Patient is stable for discharge from the pulmonary standpoint in AM. Labs and imaging reviewed. Rest of plan as noted below. Plan: Supplemental oxygen PRN. Titrate to keep O2 sats above 92%. CXR on 03/01 revealed left lower lobe airspace disease with poor visualization of the left diaphragm and small left pleural effusion. Continue antibiotics Incentive spirometry Follow up cultures - Blood cultures show no growth Bronchodilators PRN Antitussive for cough On Eliquis PO BID for AFib. Accu-Cheks, ISS Monitor renal function. Monitor electrolytes. Supplement as necessary. Monitor ins and outs. Recommend diet and lifestyle modifications for weight reduction Obesity complicates all care DVT prophylaxis. Prognosis: Poor given patient's multiple co-morbidities. Rest of plan per hospitalist and other consultants. Thank you, BAYLEE Moon, for allowing me to participate in this patient's care. Further recommendations will depend on the patient's clinical course. Please do not hesitate to contact me if you have any questions or concerns. This medical document was created using an electronic medical record system with [employer] dictation system. Although these documentations are being carefully reviewed, there may still be some phonetic and typographical changes. The errors are purely typographical, due to imperfection on the software program, and do not reflect any compromise in the patient's medical care. Plan discussed with: Patient, Other (RN) K[facility] G[facility] Mar 03, 2025 23:31
[2025-03-04] VITALS (10 sets, daily range): BP systolic 102–137; BP diastolic 63–78; PULSE 48–142; RESP 16–20; TEMP 97.5–98.8; O2SAT 92–99
[2025-03-04 05:57] LABS: Chloride 102 mmol/L (98-107); Sodium 139 mmol/L (136-145)
[2025-03-04 05:58] LABS: Anion Gap 9 (5-15); Calcium 8.7 mg/dL (8.7-10.4); Carbon Dioxide 28 mmol/L (20-31)
[2025-03-04 05:59] LABS: Hematocrit 36.4 % (41.0-53.0); Hemoglobin 12.3 g/dL (13.5-17.5); Mean Corpuscular Hemoglobin 30.8 pg (28.0-32.0); Mean Corpuscular Volume 91.4 fL (80.0-100.0); Nucleated Red Blood Cells % 0.1 %
[2025-03-04 06:03] LABS: BUN/Creatinine Ratio 16.9 (10.0-20.0); Blood Urea Nitrogen 14 mg/dL (9-23)
[2025-03-04 06:06] LABS: Glucose 209 mg/dL (74-106); Potassium 3.4 mmol/L (3.5-5.1)
[2025-03-04] MEDS: METOPROLOL TARTRATE 1MG/1ML-5ML VIAL IV PRN (09:48)
--- NOTE | 2025-03-04 10:28 | ECG ---
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
--- NOTE | 2025-03-04 15:01 | DVHPN2 ---
Subjective Overnight events noted. Patient was went into junctional tachycardia, 2D echo has been ordered cardiology consult is pending. Changes from previous H/P or p: No Changes Eyes: No Pain, No Vision change, No Conjunctivae inflammation, No Eyelid inflammation, No Other, No Redness ENT: No Ear pain, No Ear discharge, No Nose pain, No Nose discharge, No Nose congestion, No Mouth pain, No Mouth swelling, No Throat pain, No Throat swelling, No Other Cardiovascular: No Chest Pain, No Palpitations, No Orthopnea, No Paroxysmal Noc. Dyspnea, No Edema; Lt Headedness; No Other Respiratory: Cough; No Dry; Shortness of breath; No SOB with excertion, No Wheezing, No Hemoptysis, No Pleuritic Pain; Sputum; No Other Gastrointestinal: No Nausea, No Vomiting, No Abdominal Pain, No Diarrhea, No Constipation, No Melena, No Hematochezia, No Other Genitourinary: No Dysuria, No Frequency, No Incontinence, No Hematuria, No Retention, No Other Musculoskeletal: No other, No neck pain, No shoulder pain, No arm pain, No back pain, No hand pain, No leg pain, No foot pain Skin: No Rash, No Lesions, No Jaundice, No Bruising, No Other Objective Vitals Vital Signs Date Time Temp Pulse Resp B/P (MAP) Pulse Ox O2 Delivery O2 Flow Rate FiO2 03/04/25 12:20 97.8 56 20 113/67 (82) 99 97.8 03/04/25 08:00 Nasal Cannula* 2 28 Intake/Output Intake and Output 03/04/25 07:00 Intake Total 2190 ml Balance 2190 ml Intake Oral 990 ml IV Total 1200 ml # Voids 5 Exam HEENT pupils are reactive Neck is supple CV is S1-S2 regular rate and rhythm Respiratory bilateral clear GI positive bowel sound Extremity no edema [employer] no motor deficit Medications Current Medications Medications Dose Ordered Sig/Berkley Route Start Time Stop Time Status Last Admin Dose Admin Docusate Sodium 100 mg BIDPRN PRN PO 03/01/25 23:00 Acetaminophen 650 mg Q6HP PRN PO 03/01/25 23:00 03/04/25 06:24 650 MG Acetaminophen/ Hydrocodone Bitart 1 tab Q4HP PRN PO 03/01/25 23:00 Ondansetron HCl 4 mg Q4HP PRN IV 03/01/25 23:00 Nitroglycerin 0.4 mg Q5MINP PRN SL 03/01/25 23:00 Morphine Sulfate 2 mg Q30M PRN IV 03/01/25 23:00 Diagnostic Test (Pha) 1 strip ACHS 03/02/25 07:00 03/04/25 11:16 1 STRIP Insulin Human Regular ACHS SC 03/02/25 07:00 03/04/25 11:16 6 UNITS Dextrose 50 ml UD PRN IV 03/01/25 23:00 Apixaban 5 mg BID PO 03/02/25 10:00 03/04/25 09:47 5 MG Patient Own Medication 400 mg BID PO 03/02/25 10:00 Metoprolol Tartrate 50 mg BID PO 03/02/25 10:00 03/04/25 09:47 50 MG Metoprolol Tartrate 2.5 mg Q6HR PRN IV 03/01/25 23:00 03/04/25 09:48 2.5 MG Azithromycin 250 ml @ 125 mls/hr DAILY IV 03/02/25 10:00 03/04/25 09:48 125 MLS/HR Ceftriaxone Sodium 50 ml @ 100 mls/hr DAILY IV 03/02/25 10:00 03/04/25 09:47 100 MLS/HR Guaifenesin/ Dextromethorphan 10 ml Q4HP PRN PO 03/02/25 01:00 03/03/25 21:55 10 ML Albuterol 180 mcg Q8H PRN IN 03/03/25 10:00 Laboratory Results Laboratory Tests 03/04/25 04:48 Chemistry Test 03/04/25 04:48 Calcium Level 8.7 mg/dL (8.7-10.4) Urinalysis Test 03/01/25 21:30 Urine Color Light-yellow (Yellow) Urine Clarity Clear (Clear) Urine pH 5.0 (5.0-9.0) Urine Specific [place] 1.031 (1.001-1.035) Urine Protein Trace (Negative) H Urine Ketones 1+ (Negative) H Urine Blood Trace /uL (Negative) H Urine Nitrite Negative (Negative) Urine Bilirubin Negative (Negative) Urine Urobilinogen Normal mg/dL (Negative) Urine Leukocyte Esterase Negative /uL (Negative) Urine RBC 1 /hpf (0 - 3) Urine Microscopic WBC 1 /HPF (0-3) Urine Squamous Epithelial Cells None seen /hpf (<5) Urine Bacteria None seen /hpf (None Seen) Urine Glucose 4+ mg/dL (Normal) H Microbiology Microbiology Date/Time Source Procedure Growth Status 03/01/25 18:00 Blood Blood Culture - Preliminary NO GROWTH AFTER 48 HOURS OF INCUBATION. Resulted Assessment/Plan Assessment/Plan 79-year-old male with a known history of chronic AFib currently on anticoagulation, hypertension, diabetes mellitus type 2, dyslipidemia presented to the hospital with generalized weakness shortness a breath found to have 1. Acute hypoxic respiratory failure secondary to COVID-19 pneumonia as well as bacterial pneumonia 2. Left-sided community-acquired pneumonia 3. Acute viral pneumonia with a positive COVID-19 4. Hyperglycemia in the setting of diabetes mellitus type 2 5. Hypertension 6. Dyslipidemia 7. Morbid obesity classII- 8. Junctional tachycardia Increase beta-linsey dose, follow up 2D echo cardiology consultation -continue current antibiotics, COVID isolation, physical therapy evaluation and treatment -we will assess home oxygen requirement upon discharge -discharge plan. Plan discussed with: Patient Date of Service: Mar 04, 2025 Billing Provider: ALEXANDRU HERRERA MD Common Visit Codes: NOT BILLABLE ALEXANDRU HERRERA MD Mar 04, 2025 15:01
--- NOTE | 2025-03-04 16:45 | DVHINCON2 ---
Date Seen: Mar 04, 2025 Referring Physician [place] Reason for Consultation Tachycardia History of Present Illness This is a 79-year-old male with a past medical history of diabetes mellitus, atrial fibrillation on Apixaban, hyperlipidemia, and hypertension, who presented with weakness, shortness of breath, and dizziness for the past three days. The patient also reported respiratory symptoms and was found to be COVID-positive on admission. He follows with Dr. Wright as an outpatient. The reason for the cardiology consult was tachycardia with heart rate above 140 bpm. The patient states that he has been experiencing progressive shortness of breath for about one month, as sociated with a decline in functional status, bilateral lower extremity edema, and orthopnea. PAST MEDICAL HISTORY: AFIB, DM (type II ), High Lipids, HTN Surgical History right reverse total shoulder arthroplasty Family History Family History: Unknown Social History Smoker: Non-Smoker Alcohol: Denies ETOH Use Drugs: Denies Drug Use Lives In: Home Family History: Cardiovascular disease G8 MOTHER Diabetes mellitus G8 MOTHER Allergies: Coded Allergies: NO KNOWN ALLERGIES (Unverified , 11/06/24) Home Meds Reported Medications Multiple Vitamin (Multivitamins) Tab, 1 TAB PO DAILY, #30 TAB 2 Refills 11/06/24 Nifedipine (Nifedipine Er) 30 Mg Tab, 30 MG PO DAILY, TAB 11/06/24 Atorvastatin Calcium (ATORVASTATIN CALCIUM) 20 Mg Tab, 20 MG PO DAILY, TAB 11/06/24 Potassium Chloride (POTASSIUM CHLORIDE CR) 10 Meq Tb, 20 MEQ PO DAILY, TAB 11/06/24 Empagliflozin (Jardiance) 25 Mg Tab, 25 MG PO DAILY, TAB 11/06/24 Sitagliptin Phosphate (Januvia) 100 Mg Tab, 100 MG PO DAILY, TAB 11/06/24 Metformin Hydrochloride (Metformin Hcl) 1,000 Mg Tab, 1000 MG PO DAILY, TAB 11/06/24 Glipizide (Glipizide) 10 Mg Tab, 10 MG PO BID, TAB 11/06/24 Spironolactone (Spironolactone) 25 Mg Tab, 25 MG PO DAILY, TAB 11/06/24 Dronedarone Hydrochloride (Multaq) 400 Mg Tab, 400 MG PO BID, TAB 11/06/24 Apixaban Base (ELIQUIS) 5 Mg Tab, 5 MG PO BID, TAB 11/06/24 Metoprolol Tartrate (LOPRESSOR TABLET) 50 Mg Tb, 25 MG GT BID, TAB 11/06/24 Current Medications Current Medications Medications (Trade) Dose Ordered Sig/Berkley Route PRN Reason Start Time Stop Time Status Last Admin Empaglifozin (Jardiance) 10 mg DAILY PO 03/05/25 10:00 Review of Systems Constitutional: denies: chills, diaphoresis, fatigue, fever, malaise, sweats, weakness, others EENTM: denies: blurred vision, double vision, ear bleeding, ear discharge, ear drainage, ear pain, ear ringing, eye pain, eye redness, hearing loss, mouth pain, mouth swelling, nasal discharge, nose bleeding, nose congestion, nose pain, photophobia, tearing, throat pain, throat swelling, voice changes, others Respiratory: denies: cough, hemoptysis, orthopnea, SOB at rest, shortness of breath, SOB with excertion, stridor, wheezing, others Cardiovascular: reports: dizzy spells, lightheadedness; denies: chest pain, diaphoresis, Dyspnea on exertion, edema, irregular heart beat, left arm pain, palpitations, PND, syncope, others Gastrointestinal: denies: abdomen distended, abdominal pain, blood streaked bowels, constipated, diarrhea, dysphagia, difficulty swallowing, hematemesis, melena, nausea, poor appetite, poor fluid intake, rectal bleeding, rectal pain, vomiting, others Genitourinary: denies: burning, dysuria, flank pain, frequency, hematuria, incontinence, penile discharge, penile sore, pain, testicle pain, testicle swelling, urgency, others Neurological: reports: dizziness, weakness; denies: fainting, headache, left sided numbness, left sided weakness, numbness, paresthesia, pre-existing deficit, right sided numbness, right sided weakness, seizure, speech problems, tingling, tremors, others Musculoskeletal: denies: back pain, gout, joint pain, joint swelling, muscle pain, muscle stiffness, neck pain, others Integumetry: denies: bruises, change in color, change in hair/nails, dryness, laceration, lesions, lumps, rash, wounds, others Allergic/Immunocompromised: denies: Difficulty Healing, Frequent Infections, Hives, Itching, others Endocrine: denies: excessive hunger, excessive sweating, excessive thirst, excessive urination, flushing, intolerance to cold, intolerance to heat, unexplained weight gain, unexplained weight loss, others Psychiatric: denies: anxiety, bipolar disorder, depression, hopeless, panic disorder, schizophrenia, sleepless, suicidal, others Vital Signs Vital Signs Date Time Temp Pulse Resp B/P (MAP) Pulse Ox O2 Delivery O2 Flow Rate FiO2 03/04/25 12:20 97.8 56 20 113/67 (82) 99 97.8 03/04/25 08:00 Nasal Cannula* 2 28 Physical Exam General: Alert, oriented 3, in mild respiratory distress on 2 L O? via nasal cannula (not used at home). Cardiac: Tachycardic on initial exam; regular rhythm after rate control; no murmurs, rubs, or gallops. Respiratory: mild bibasilar crackles noted Extremities: bilateral pedal edema. Neuro: No focal deficits. Labs/Diagnostic Data Labs Test 03/04/25 11:08 03/04/25 04:48 03/02/25 04:37 03/01/25 23:10 Range/Units POC Glucose 268 H 70-106 mg/dl White Blood Count 4.5 4.4-10.8 10^3/uL Red Blood Count 3.98 L 4.5-5.90 10^6/uL Hemoglobin 12.3 L 13.5-17.5 g/dL Hematocrit 36.4 L 41.0-53.0 % Mean Corpuscular Volume 91.4 80.0-100.0 fL Mean Corpuscular Hemoglobin 30.8 28.0-32.0 pg Mean Corpuscular Hemoglobin Concent 33.7 32.0-36.0 g/dL Red Cell Distribution Width 15.1 H 11.8-14.3 % Platelet Count 140 140-450 10^3/uL Mean Platelet Volume 8.9 6.9-10.8 fL Neutrophils (%) (Auto) 52.5 37.0-80.0 % Lymphocytes (%) (Auto) 28.2 10.0-50.0 % Monocytes (%) (Auto) 16.6 H 0.0-12.0 % Eosinophils (%) (Auto) 1.9 0.0-7.0 % Basophils (%) (Auto) 0.8 0.0-2.0 % Neutrophils # (Auto) 2.4 1.6-8.6 10 ^3/uL Lymphocytes # (Auto) 1.3 0.4-5.4 10 ^3/uL Monocytes # (Auto) 0.7 0-1.3 10 ^3/uL Eosinophils # (Auto) 0.1 0-0.8 10 ^3/uL Basophils # (Auto) 0 0-0.2 10 ^3/uL Nucleated Red Blood Cells 0.1 % Sodium Level 139 136-145 mmol/L Potassium Level 3.4 L 3.5-5.1 mmol/L Chloride Level 102 98-107 mmol/L Carbon Dioxide Level 28 20-31 mmol/L Anion Gap 9 5-15 Blood Urea Nitrogen 14 9-23 mg/dL Creatinine 0.83 0.700-1.30 mg/dL Glomerular Filtration Rate Calc 90 >90 mL/min BUN/Creatinine Ratio 16.9 10.0-20.0 Serum Glucose 209 H 74-106 mg/dL Calcium Level 8.7 8.7-10.4 mg/dL B-Type Natriuretic Peptide 68.24 0-100 pg/mL Differential Total Cells Counted 100.0 100 Neutrophils % (Manual) 63 37.0-80.0 Band Neutrophils % (Manual) 0 Lymphocytes % (Manual) 32 10.0-50.0 Monocytes % (Manual) 5 0-12 Eosinophils % (Manual) 0 0-7 Basophils % (Manual) 0 0.0-2.0 Metamyelocytes % (manual) 0 Myelocytes % (Manual) 0 Promyelocytes % (Manual) 0 Blast Cells % (Manual) 0 Reactive Lymphocytes 0 Platelet Estimate Decreased Influenza Type A Antigen Negative Negative Influenza Type B Antigen Negative Negative SARS-CoV-2 Antigen (Rapid) Positive *A NEGATIVE Test 03/01/25 21:30 03/01/25 18:00 03/01/25 17:45 Range/Units Urine Color Light-yellow Yellow Urine Clarity Clear Clear Urine pH 5.0 5.0-9.0 Urine Specific [place] 1.031 1.001-1.035 Urine Protein Trace H Negative Urine Ketones 1+ H Negative Urine Blood Trace H Negative /uL Urine Nitrite Negative Negative Urine Bilirubin Negative Negative Urine Urobilinogen Normal Negative mg/dL Urine Leukocyte Esterase Negative Negative /uL Urine RBC 1 0 - 3 /hpf Urine Microscopic WBC 1 0-3 /HPF Urine Squamous Epithelial Cells None seen <5 /hpf Urine Bacteria None seen None Seen /hpf Urine Glucose 4+ H Normal mg/dL Prothrombin Time 11.4 9.3-11.8 sec Prothrombin Time INR 1.08 0.9-1.15 Activated Partial Thromboplast Time 30.2 24.5-34.5 SEC Lactic Acid Level 1.7 0.4-2.0 mmol/L Magnesium Level 1.8 1.6-2.6 mg/dL Total Bilirubin 0.6 0.2-1.0 mg/dL Aspartate Amino Transferase (AST) 21 13-40 U/L Alanine Aminotransferase (ALT) 15 7-40 U/L Alkaline Phosphatase 72 46-116 U/L Total Protein 8.1 5.7-8.2 g/dL Albumin 4.4 3.2-4.8 g/dL Troponin I High Sensitivity 10 </=54 ng/L Microbiology Date/Time Source Procedure Growth Status 03/01/25 18:00 Blood Blood Culture - Preliminary NO GROWTH AFTER 48 HOURS OF INCUBATION. Resulted Assessment Vital Signs: Initially HR 140s; after PO and IV metoprolol, HR decreased to 60s. BP stable. O2 saturation maintained >94% on 2 L nasal cannula. Diagnostics: EKG: Regular tachycardia; differential includes junctional tachycardia vs atrial fibrillation with RVR, likely related to sepsis from COVID pneumonia. Chest X-ray: Left lower lobe airspace opacity consistent with COVID pneumonia; mild pulmonary vascular congestion noted. Echocardiogram (preliminary): Preserved ejection fraction, no pulmonary hypertension. BNP: Negative; may be falsely low due to BMI ~40. Assessment: 1. Tachycardia likely secondary to systemic response from COVID-related sepsis; possible intermittent AFib with RVR. 2. Atrial fibrillation, currently rate controlled on metoprolol. 3. COVID pneumonia with mild pulmonary congestion, causing hypoxia and functional decline. 4. Possible early heart failure suggested by orthopnea and pulmonary congestio n despite preserved EF. 5. Hypertension, diabetes, hyperlipidemia, obesity (BMI ~40) chronic, stable conditions. Plan / Recommendations: Continue Apixaban, Multaq, and metoprolol as home regimen. Maintain oxygen supplementation as needed; wean as tolerated. Start empagliflozin (Jardiance) for cardiometabolic benefit and HF prevention. Continue management of COVID pneumonia per primary team Recommend outpatient follow-up with Dr. Wright (cardiology). Consider ambulatory event monitor after discharge to assess for recurrent arrhythmia Case discussed with Dr Wright Time spent on care 71 min Plan discussed with: Patient, Other (rn) NYHA Physical activity limitations: Class2(Slight)fatigue,sob Date of Service: Mar 04, 2025 Billing Provider: CANDACE BAEZ Cardiology Common Codes: [id number] CARE 30-74 MIN CANDACE BAEZ Mar 04, 2025 16:45
[2025-03-04] MEDS: FUROSEMIDE 20 MG/2 ML VIAL IV ONE (20:54)
[2025-03-04] MEDS: BUDESONIDE (INHALATION) 0.5 MG/2 ML NEB NEB SCH (22:00)
[2025-03-04] MEDS ORDERED: DEXTROSE (50%) 50ML SYRG IV PRN (23:00)
--- NOTE | 2025-03-04 23:04 | DVHPN2 ---
Progress Note - Dictate Date Seen: Mar 04, 2025 Medical Necessity Reason Pt with a Central, PICC or Fol: No Subjective Patient seen and examined at bedside. Currently on supplemental oxygen Overnight events reviewed. vital signs Vital Sign Date Time Temp Pulse Resp B/P (MAP) Pulse Ox O2 Delivery O2 Flow Rate FiO2 03/04/25 22:28 63 122/63 03/04/25 22:18 94 Room Air* 0 21 03/04/25 21:00 97.5 17 97.5 Total Intake and Output 03/03/25 03/03/25 03/04/25 15:00 23:00 07:00 Intake Total 50 ml 1000 ml 1140 ml Balance 50 ml 1000 ml 1140 ml medications Current Medications Medications Dose Ordered Sig/Berkley Route Start Time Stop Time Status Last Admin Dose Admin Docusate Sodium 100 mg BIDPRN PRN PO 03/01/25 23:00 Acetaminophen 650 mg Q6HP PRN PO 03/01/25 23:00 03/04/25 06:24 650 MG Acetaminophen/ Hydrocodone Bitart 1 tab Q4HP PRN PO 03/01/25 23:00 Ondansetron HCl 4 mg Q4HP PRN IV 03/01/25 23:00 Nitroglycerin 0.4 mg Q5MINP PRN SL 03/01/25 23:00 Morphine Sulfate 2 mg Q30M PRN IV 03/01/25 23:00 Diagnostic Test (Pha) 1 strip ACHS 03/02/25 07:00 03/04/25 22:33 1 STRIP Insulin Human Regular ACHS SC 03/02/25 07:00 03/04/25 22:39 10 UNITS Dextrose 50 ml UD PRN IV 03/01/25 23:00 Apixaban 5 mg BID PO 03/02/25 10:00 03/04/25 22:28 5 MG Patient Own Medication 400 mg BID PO 03/02/25 10:00 Metoprolol Tartrate 50 mg BID PO 03/02/25 10:00 03/04/25 22:28 50 MG Metoprolol Tartrate 2.5 mg Q6HR PRN IV 03/01/25 23:00 03/04/25 09:48 2.5 MG Azithromycin 250 ml @ 125 mls/hr DAILY IV 03/02/25 10:00 03/04/25 09:48 125 MLS/HR Ceftriaxone Sodium 50 ml @ 100 mls/hr DAILY IV 03/02/25 10:00 03/04/25 09:47 100 MLS/HR Guaifenesin/ Dextromethorphan 10 ml Q4HP PRN PO 03/02/25 01:00 03/03/25 21:55 10 ML Albuterol 180 mcg Q8H PRN IN 03/03/25 10:00 Empaglifozin 10 mg DAILY PO 03/05/25 10:00 Dexamethasone Sodium Phosphate 6 mg DAILY IV 03/05/25 10:00 Budesonide 0.5 mg BID NEB 03/04/25 22:00 Diagnostic Test (Pha) 1 strip ACHS 03/05/25 07:00 UNV Insulin Human Regular AC SC 03/05/25 07:00 UNV Dextrose 50 ml UD PRN IV 03/04/25 23:00 UNV objective Gen.: Patient lying in bed in no apparent distress. On supplemental oxygen. Head: Normocephalic, atraumatic. Eyes: EOMI/PERRLA. Ears: Normal hearing. Normal anatomy. Neck/trachea: Trachea midline, supple. Nose: Normal external anatomy. Mouth: Moist mucous membranes. Chest: Decreased air entry bilaterally. No wheezing or rhonchi. Cardiovascular: Positive S1, positive S2. Regular rate and rhythm. Abdomen: Positive bowel sounds in all 4 quadrants. Soft, non-tender, non- distended. : Deferred. Rectal: Deferred. Skin: Warm, dry. Intact. Extremities: 2+ radial pulses bilaterally. No lower extremity edema. Neuro: Awake, alert, oriented x3. No gross motor or sensory deficits. Cranial nerves II through XII intact. Gait not assessed. laboratory and microbiology Laboratory Tests 03/04/25 04:48 Test 03/04/25 04:48 Range/Units Serum Glucose 209 H 74-106 mg/dL Assessment/Plan Impression: Acute hypoxic respiratory failure Pneumonia Atelectasis COVID-19 positive. Obesity, BMI 38.4 Events: Currently on supplemental oxygen, 2 LPM NC Taper O2 as tolerated No distress. No acute overnight events Continue antibiotics Antitussive for cough Incentive spirometry Decadron 6 mg IVP daily due to increased oxygen requirements and dyspnea, COVID positive. Obtain chest x-ray in AM for interval changes due to shortness of breath. Labs and imaging reviewed. Rest of plan as noted below. Plan: Supplemental oxygen PRN. Titrate to keep O2 sats above 92%. CXR on 03/01 revealed left lower lobe airspace disease with poor visualization of the left diaphragm and small left pleural effusion. Continue antibiotics Incentive spirometry Follow up cultures - Blood cultures show no growth Bronchodilators PRN Antitussive for cough On Eliquis PO BID for AFib. Accu-Cheks, ISS Monitor renal function. Monitor electrolytes. Supplement as necessary. Monitor ins and outs. Recommend diet and lifestyle modifications for weight reduction Obesity complicates all care DVT prophylaxis. Prognosis: Poor given patient's multiple co-morbidities. Rest of plan per hospitalist and other consultants. Thank you, BAYLEE Moon, for allowing me to participate in this patient's care. Further recommendations will depend on the patient's clinical course. Please do not hesitate to contact me if you have any questions or concerns. This medical document was created using an electronic medical record system with [employer] dictation system. Although these documentations are being carefully reviewed, there may still be some phonetic and typographical changes. The errors are purely typographical, due to imperfection on the software program, and do not reflect any compromise in the patient's medical care. Dietary Evaluation Review Recommendations by RD: Dietary education by RD Comments: 1) Change 60g CCHO 2g Na diet to 45g CCHO cardiac diet 2) Encourage optimal PO intake 3) Collect HbA1c 4) Refer to outpatient RD/[facility] for diabetes counseling and weight management 5) Follow-up with cardiology and pulmonology 6) Continue to monitor I&O, labs, and skin integrity Expected Outcomes/Goals: 1) appetite and labs to improve 2) gradual wt loss 3) f/u in 3-5 days Plan discussed with: Patient, Other (MARA Brothers) K[facility] G[facility] MEDICAL CENTERLynnette Mar 04, 2025 23:04
[2025-03-05] VITALS (7 sets, daily range): BP systolic 122–147; BP diastolic 63–85; PULSE 51–66; RESP 16–18; TEMP 97.8–98; O2SAT 94–100
[2025-03-05] MEDS ORDERED: DEXTROSE (50%) 50ML SYRG IV PRN (00:30)
[2025-03-05 05:16] LABS: Chloride 102 mmol/L (98-107); Potassium 4.0 mmol/L (3.5-5.1); Sodium 139 mmol/L (136-145)
[2025-03-05 05:17] LABS: Anion Gap 8 (5-15); Carbon Dioxide 29 mmol/L (20-31)
[2025-03-05 05:18] LABS: Calcium 8.9 mg/dL (8.7-10.4)
[2025-03-05 05:19] LABS: Hematocrit 38.2 % (41.0-53.0); Hemoglobin 12.8 g/dL (13.5-17.5); Mean Corpuscular Hemoglobin 30.8 pg (28.0-32.0); Mean Corpuscular Volume 92.0 fL (80.0-100.0); Nucleated Red Blood Cells % 0.6 %
[2025-03-05 05:23] LABS: BUN/Creatinine Ratio 17.6 (10.0-20.0); Blood Urea Nitrogen 15 mg/dL (9-23)
[2025-03-05 05:27] LABS: Glucose 343 mg/dL (74-106)
--- NOTE | 2025-03-05 05:44 | DVH ---
CHEST RADIOGRAPH Indication: increasing O2 demand / SOB Technique: Single frontal view of the chest was obtained COMPARISON: XY CHEST XRAY 1 VIEW on DOS: 03/01/25, XR CHEST 2 VIEW on DOS: 06/17/24, CR CHEST 2 VIEW o n DOS: 03/19/24, CR CHEST 2 VIEW on DOS: 11/30/23 FINDINGS: Lines and Tubes: None Lungs: Unchanged pulmonary vascular congestion. Pleura: No effusion.No pneumothorax. Cardiomediastinal contours: Cardiomegaly. Bones: Unremarkable IMPRESSION: Unchanged pulmonary vascular congestion.
[2025-03-05] MEDS: InsuLIN REG 1unit/0.01ml Soln (100units/ml) SC SCH (06:42)
[2025-03-05] MEDS ORDERED: InsuLIN REG 1unit/0.01ml Soln (100units/ml) SC SCH ×2 (07:00)
[2025-03-05] MEDS ORDERED: ACCU-CHEK COMFORT CURVE STRIP VI SCH (07:00)
[2025-03-05] MEDS: EMPAGLIFLOZIN 10 MG TAB PO SCH (10:30)
[2025-03-05] MEDS ORDERED: CEFD300C2 PO (12:12)
[2025-03-05] MEDS ORDERED: MET50T PO (12:12)
[2025-03-05] MEDS ORDERED: AZIT500T66 PO (12:13)
[2025-03-05] MEDS ORDERED: ALBUAER3 IN (12:13)
[2025-03-05] MEDS ORDERED: METH4PAK PO (12:15)
--- NOTE | 2025-03-05 18:49 | DVHSR ---
APPROVED REPORT EXAM: Two-dimensional and M-mode echocardiogram with Doppler and color Doppler. Blood Pressure: 109/63 mmHg INDICATION Uncontrolled Afib RISK FACTORS Obesity: Height: 5'6", Weight: 238 DIMENSIONS LVDd5.2 (3.8-5.7cm)LA (2D) (1.9-4.0cm)Aortic Root4.0 (2.0-3.7cm) LVDs3.5 (2.5-4.0cm)LA (MM) (1.9-4.0cm)Aortic Cusp Exc1.9 (1.5-2.0cm) EF (%) 60.0 (55-70%)Rt. Atrium (1.9-4.0cm)Asc. Aorta cm IVSd1.1 (0.7-1.1cm)RV (D) (1.8-2.4cm) PWd1.0 (0.7-1.1cm) Mitral Valve MitralMitral Stenosis E wave1.04m/sMV Mean GR.mmHg A wave0.48m/sMV Peak GR.mmHg E/A ratio2.22D MVAcm2 DECEL [id number] 1/2 Timems Aortic Valve Aortic ValveAortic Stenosis V10.86m/Mati Mean GR.3mmHg V21.13m/Mati Peak GR.5mmHg LVOT Diameter2.1 (1.8-2.4cm)Doppler AVA2.63cm2 Pulmonic Valve V20.74m/s Other Information Technically limited study due to body habitus. Conclusion Sinus rhythm. Left atrial enlargement of mild degree. Aortic root enlargement. There appears to be no significant abnormalities with the valves. The mitral aortic and tricuspid ar e structurally normal. The pulmonic is normal. Left ventricular function is preserved at 60% with normal RV function. Doppler reveals no significant regurgitant jets. No pericardial effusion masses or vegetations.
--- NOTE | 2025-03-06 11:07 | DVHPNRES ---
Progress Note Date Seen: Mar 05, 2025 Resident Creating Document: CANDACE BAEZ RESIDENT Medical Necessity Reason Pt with a Central, PICC or Fol: No Subjective Review of Systems This is a 79-year-old male with a past medical history of diabetes mellitus, atrial fibrillation on Apixaban, hyperlipidemia, and hypertension, who presented with weakness, shortness of breath, and dizziness for the past three days. The patient also reported respiratory symptoms and was found to be COVID-positive on admission. He follows with Dr. Wright as an outpatient. The reason for the cardiology consult was tachycardia with heart rate above 140 bpm. The patient states that he has been experiencing progressive shortness of breath for about one month, associated with a decline in functional status, bilateral lower extremity edema, and orthopnea. 03/05/25: SOB better, HR controlled, K normal Objective vital signs Vital Sign Date Time Temp Pulse Resp B/P (MAP) Pulse Ox O2 Delivery O2 Flow Rate FiO2 03/05/25 09:00 97.8 66 17 147/79 (101) 96 97.8 03/05/25 07:46 Nasal Cannula 3.0 03/05/25 07:46 32 Total Intake and Output 03/04/25 03/04/25 03/05/25 15:00 23:00 07:00 Intake Total 300 ml 860 ml 800 ml Balance 300 ml 860 ml 800 ml medications Current Medications Medications Dose Ordered Sig/Berkley Route Start Time Stop Time Status Last Admin Dose Admin Docusate Sodium 100 mg BIDPRN PRN PO 03/01/25 23:00 Acetaminophen 650 mg Q6HP PRN PO 03/01/25 23:00 03/04/25 06:24 650 MG Acetaminophen/ Hydrocodone Bitart 1 tab Q4HP PRN PO 03/01/25 23:00 Ondansetron HCl 4 mg Q4HP PRN IV 03/01/25 23:00 Nitroglycerin 0.4 mg Q5MINP PRN SL 03/01/25 23:00 Morphine Sulfate 2 mg Q30M PRN IV 03/01/25 23:00 Diagnostic Test (Pha) 1 strip ACHS 03/02/25 07:00 03/05/25 06:32 1 STRIP Apixaban 5 mg BID PO 03/02/25 10:00 03/05/25 09:44 5 MG Patient Own Medication 400 mg BID PO 03/02/25 10:00 Metoprolol Tartrate 50 mg BID PO 03/02/25 10:00 03/04/25 22:28 50 MG Metoprolol Tartrate 2.5 mg Q6HR PRN IV 03/01/25 23:00 03/04/25 09:48 2.5 MG Azithromycin 250 ml @ 125 mls/hr DAILY IV 03/02/25 10:00 03/05/25 09:34 125 MLS/HR Ceftriaxone Sodium 50 ml @ 100 mls/hr DAILY IV 03/02/25 10:00 03/05/25 09:33 100 MLS/HR Guaifenesin/ Dextromethorphan 10 ml Q4HP PRN PO 03/02/25 01:00 03/03/25 21:55 10 ML Albuterol 180 mcg Q8H PRN IN 03/03/25 10:00 Empaglifozin 10 mg DAILY PO 03/05/25 10:00 Dexamethasone Sodium Phosphate 6 mg DAILY IV 03/05/25 10:00 03/05/25 09:33 6 MG Budesonide 0.5 mg BID NEB 03/04/25 22:00 03/05/25 07:46 0.5 MG Diagnostic Test (Pha) 1 strip ACHS 03/05/25 07:00 Cancel Insulin Human Regular AC SC 03/05/25 07:00 UNV Insulin Human Regular ACHS SC 03/05/25 07:00 UNV Dextrose 50 ml UD PRN IV 03/05/25 00:30 Insulin Human Regular ACHS SC 03/05/25 07:00 03/05/25 06:42 12 UNITS Examination General: Alert, oriented 3, in mild respiratory distress on 2 L O? via nasal cannula (not used at home). Cardiac: Tachycardic on initial exam; regular rhythm after rate control; no murmurs, rubs, or gallops. Respiratory: clear Extremities: bilateral pedal edema. Neuro: No focal deficits. laboratory and microbiology Laboratory Tests 03/05/25 04:26 Test 03/05/25 04:26 Range/Units Serum Glucose 343 #H 74-106 mg/dL Microbiology Date/Time Source Procedure Growth Status 03/01/25 18:00 Blood Blood Culture - Preliminary NO GROWTH AFTER 72 HOURS OF INCUBATION. Resulted Problem List/Assessment/Plan Problem List/Assessment/Plan 1. Tachycardia likely secondary to systemic response from COVID-related sepsis; possible intermittent AFib with RVR. 2. Atrial fibrillation, currently rate controlled on metoprolol. 3. COVID pneumonia with mild pulmonary congestion, causing hypoxia and functional decline. 4. Possible early heart failure suggested by orthopnea and pulmonary congestion despite preserved EF. 5. Hypertension, diabetes, hyperlipidemia, obesity (BMI ~40) chronic, stable conditions. Plan / Recommendations: Continue Apixaban, Multaq, and metoprolol as home regimen. Maintain oxygen supplementation as needed; wean as tolerated. Continue empagliflozin (Jardiance) for cardiometabolic benefit and HF prevention. We agree on furosemide given Continue management of COVID pneumonia per primary team Recommend outpatient follow-up with Dr. Wright (cardiology), we will sign off of this case, call us if any questions Consider ambulatory event monitor after discharge to assess for recurrent arrhythmia Case discussed with Dr Wright Time spent on care 71 min Plan discussed with: Patient My Orders My Orders Orders - CANDACE BAEZ Procedure Category Date Status Time Empagliflozin PHA 03/05/25 In Process (Jardiance) 10:00 Hemoglobin A1c LAB 03/05/25 Logged 10:01 Dietary Evaluation Review Recommendations by RD: Dietary education by RD Comments: 1) Change 60g CCHO 2g Na diet to 45g CCHO cardiac diet 2) Encourage optimal PO intake 3) Collect HbA1c 4) Refer to outpatient RD/[facility] for diabetes counseling and weight management 5) Follow-up with cardiology and pulmonology 6) Continue to monitor I&O, labs, and skin integrity Expected Outcomes/Goals: 1) appetite and labs to improve 2) gradual wt loss 3) f/u in 3-5 days Visit Coding Cardiology RES Date of Service: Mar 05, 2025 Billing Provider: VALENCIA WRIGHT Sr., MD Cardiology Common Codes: [id number] CARE 30-74 MIN CANDACE BAEZ RESIDENT Mar 05, 2025 10:30
--- NOTE | 2025-03-06 11:10 | DVHDS2 ---
Discharge Summary Date of Admission Mar 01, 2025 at 22:58 Date of Discharge: Mar 05, 2025 Labs/Diagnostic Data: Laboratory Results Test 03/05/25 11:42 03/05/25 04:26 03/04/25 04:48 03/02/25 04:37 POC Glucose 347 mg/dl (70-106) White Blood Count 3.1 10^3/uL (4.4-10.8) Red Blood Count 4.15 10^6/uL (4.5-5.90) Hemoglobin 12.8 g/dL (13.5-17.5) Hematocrit 38.2 % (41.0-53.0) Mean Corpuscular Volume 92.0 fL (80.0-100.0) Mean Corpuscular Hemoglobin 30.8 pg (28.0-32.0) Mean Corpuscular Hemoglobin Concent 33.5 g/dL (32.0-36.0) Red Cell Distribution Width 15.0 % (11.8-14.3) Platelet Count 139 10^3/uL (140-450) Mean Platelet Volume 9.0 fL (6.9-10.8) Neutrophils (%) (Auto) 73.7 % (37.0-80.0) Lymphocytes (%) (Auto) 20.3 % (10.0-50.0) Monocytes (%) (Auto) 5.6 % (0.0-12.0) Eosinophils (%) (Auto) 0.1 % (0.0-7.0) Basophils (%) (Auto) 0.3 % (0.0-2.0) Neutrophils # (Auto) 2.3 10 ^3/uL (1.6-8.6) Lymphocytes # (Auto) 0.6 10 ^3/uL (0.4-5.4) Monocytes # (Auto) 0.2 10 ^3/uL (0-1.3) Eosinophils # (Auto) 0 10 ^3/uL (0-0.8) Basophils # (Auto) 0 10 ^3/uL (0-0.2) Nucleated Red Blood Cells 0.6 % Sodium Level 139 mmol/L (136-145) Potassium Level 4.0 mmol/L (3.5-5.1) Chloride Level 102 mmol/L (98-107) Carbon Dioxide Level 29 mmol/L (20-31) Anion Gap 8 (5-15) Blood Urea Nitrogen 15 mg/dL (9-23) Creatinine 0.85 mg/dL (0.700-1.30) Glomerular Filtration Rate Calc 90 mL/min (>90) BUN/Creatinine Ratio 17.6 (10.0-20.0) Serum Glucose 343 mg/dL (74-106) Hemoglobin A1c 7.7 % A1C (<5.7) Calcium Level 8.9 mg/dL (8.7-10.4) B-Type Natriuretic Peptide 68.24 pg/mL (0-100) Differential Total Cells Counted 100.0 (100) Neutrophils % (Manual) 63 (37.0-80.0) Band Neutrophils % (Manual) 0 Lymphocytes % (Manual) 32 (10.0-50.0) Monocytes % (Manual) 5 (0-12) Eosinophils % (Manual) 0 (0-7) Basophils % (Manual) 0 (0.0-2.0) Metamyelocytes % (manual) 0 Myelocytes % (Manual) 0 Promyelocytes % (Manual) 0 Blast Cells % (Manual) 0 Reactive Lymphocytes 0 Platelet Estimate Decreased Test 03/01/25 23:10 03/01/25 21:30 03/01/25 18:00 03/01/25 17:45 Influenza Type A Antigen Negative (Negative) Influenza Type B Antigen Negative (Negative) SARS-CoV-2 Antigen (Rapid) Positive (NEGATIVE) Urine Color Light-yellow (Yellow) Urine Clarity Clear (Clear) Urine pH 5.0 (5.0-9.0) Urine Specific [place] 1.031 (1.001-1.035) Urine Protein Trace (Negative) Urine Ketones 1+ (Negative) Urine Blood Trace /uL (Negative) Urine Nitrite Negative (Negative) Urine Bilirubin Negative (Negative) Urine Urobilinogen Normal mg/dL (Negative) Urine Leukocyte Esterase Negative /uL (Negative) Urine RBC 1 /hpf (0 - 3) Urine Microscopic WBC 1 /HPF (0-3) Urine Squamous Epithelial Cells None seen /hpf (<5) Urine Bacteria None seen /hpf (None Seen) Urine Glucose 4+ mg/dL (Normal) Prothrombin Time 11.4 sec (9.3-11.8) Prothrombin Time INR 1.08 (0.9-1.15) Activated Partial Thromboplast Time 30.2 SEC (24.5-34.5) Lactic Acid Level 1.7 mmol/L (0.4-2.0) Magnesium Level 1.8 mg/dL (1.6-2.6) Total Bilirubin 0.6 mg/dL (0.2-1.0) Aspartate Amino Transferase (AST) 21 U/L (13-40) Alanine Aminotransferase (ALT) 15 U/L (7-40) Alkaline Phosphatase 72 U/L (46-116) Total Protein 8.1 g/dL (5.7-8.2) Albumin 4.4 g/dL (3.2-4.8) Troponin I High Sensitivity 10 ng/L (</=54) Other Laboratory Tests 03/05/25 04:26 Brief Hx & Hospital Course: 79-year-old male with a known history of chronic AFib currently on anticoagulation, hypertension, diabetes mellitus type 2, dyslipidemia presented to the hospital with generalized weakness shortness a breath found to have acute hypoxic and history. Continue COVID-19 pneumonia as well as bacterial pneumonia. Patient was treated with IV antibiotics and dexamethasone. Patient hospital course was eventful for junctional tachycardia and also paroxysmal AFib although patient does have a known history of chronic AFib currently on Eliquis and beta-linsey and Multaq. Cardiology when the patient patient clinically to be discharged. Patient does decide on exertion below-knee home O2. Patient will be given antibiotics as well as Medrol Dosepak. Please follow-up with PCP as an outpatient as well as Cardiology. Condition at Discharge: Stable Final Diagnosis/Problems List 79-year-old male with a known history of chronic AFib currently on anticoagulation, hypertension, diabetes mellitus type 2, dyslipidemia presented to the hospital with generalized weakness shortness a breath found to have 1. Acute hypoxic respiratory failure secondary to COVID-19 pneumonia as well as bacterial pneumonia 2. Left-sided community-acquired pneumonia 3. Acute viral pneumonia with a positive COVID-19 4. Hyperglycemia in the setting of diabetes mellitus type 2 5. Hypertension 6. Dyslipidemia 7. Morbid obesity classII- 8. Junctional tachycardia Increase beta-linsey dose, follow up 2D echo cardiology consultation -continue current antibiotics, COVID isolation, physical therapy evaluation and treatment -we will assess home oxygen requirement upon discharge -discharge plan. Discharge Disposition: Home with [facility] Discharge Will this Physician continue t: No Discharge Instruct/Medications Diet: Cardiac 2g Na,low cholest Activity: [id number] Follow Up/Referral: Please follow-up with PCP in 1-2 weeks Follow up with Cardiology in 1-2 weeks For the pulmonary with a repeat chest x-ray in 4 weeks. Medications: Resume home medication, new prescription as prescribed. New Medications: Azithromycin (Azithromycin) 500 Mg Tab 1 TAB PO DAILY, #3 TAB Cefdinir (Cefdinir) 300 Mg Cap 1 CAP PO BID for 7 Days, #14 CAP Methylprednisolone (Medrol Dosepak) 4 Mg Dung 4 MG PO UD, #21 TAB UAD Albuterol Sulfate (Ventolin Mdi) 90 Mcg Ih 180 MCG IN Q8H PRN, #1 INH Metoprolol Tartrate (Lopressor Tablet) 50 Mg Tb 50 MG PO BID for 30 Days, #60 TAB Continued Medications: Apixaban Base (Eliquis) 5 Mg Tab 5 MG PO BID, TAB Atorvastatin Calcium (Atorvastatin Calcium) 20 Mg Tab 20 MG PO DAILY, TAB Dronedarone Hydrochloride (Multaq) 400 Mg Tab 400 MG PO BID, TAB Empagliflozin (Jardiance) 25 Mg Tab 25 MG PO DAILY, TAB Glipizide (Glipizide) 10 Mg Tab 10 MG PO BID, TAB Metformin Hydrochloride (Metformin Hcl) 1,000 Mg Tab 1000 MG PO DAILY, TAB Multiple Vitamin (Multivitamins) Tab 1 TAB PO DAILY, #30 TAB 2 Refills Potassium Chloride (Potassium Chloride Cr) 10 Meq Tb 20 MEQ PO DAILY, TAB Sitagliptin Phosphate (Januvia) 100 Mg Tab 100 MG PO DAILY, TAB Spironolactone (Spironolactone) 25 Mg Tab 25 MG PO DAILY, TAB Discontinued Medications: Metoprolol Tartrate (Lopressor Tablet) 50 Mg Tb 25 MG GT BID, TAB Nifedipine (Nifedipine Er) 30 Mg Tab 30 MG PO DAILY, TAB Scheduled Apixaban Base (Eliquis), 5 MG PO BID, (Reported) Atorvastatin Calcium (Atorvastatin Calcium), 20 MG PO DAILY, (Reported) Azithromycin (Azithromycin), 1 TAB PO DAILY Cefdinir (Cefdinir), 1 CAP PO BID Dronedarone Hydrochloride (Multaq), 400 MG PO BID, (Reported) Empagliflozin (Jardiance), 25 MG PO DAILY, (Reported) Glipizide (Glipizide), 10 MG PO BID, (Reported) Metformin Hydrochloride (Metformin Hcl), 1,000 MG PO DAILY, (Reported) Methylprednisolone (Medrol Dosepak), 4 MG PO UD Metoprolol Tartrate (Lopressor Tablet), 50 MG PO BID Multiple Vitamin (Multivitamins), 1 TAB PO DAILY, (Reported) Potassium Chloride (Potassium Chloride Cr), 20 MEQ PO DAILY, (Reported) Sitagliptin Phosphate (Januvia), 100 MG PO DAILY, (Reported) Spironolactone (Spironolactone), 25 MG PO DAILY, (Reported) Scheduled PRN Albuterol Sulfate (Ventolin Mdi), 180 MCG IN Q8H PRN Discontinued Medications Metoprolol Tartrate (Lopressor Tablet), 25 MG GT BID, (Reported) Nifedipine (Nifedipine Er), 30 MG PO DAILY, (Reported) Discharge Statement: "Patient was advised to return to the ER or call 911 if any headaches, dizziness, shortness of breath, chest pain, abdominal pain, bleeding, fevers, or worsening of medical condition. Patient was counseled about treatment plan, medications, possible side effects, patientverbalized understanding. All questions were answered to the best of my ability. This discharge took greater then 30 minutes in planning, reviewing documentation, counseling the patient, and discussing with other team members." ASSESSMENT ASSESSMENT Assessment 79-year-old male with a known history of chronic AFib currently on anticoagulation, hypertension, diabetes mellitus type 2, dyslipidemia presented to the hospital with generalized weakness shortness a breath found to have 1. Acute hypoxic respiratory failure secondary to COVID-19 pneumonia as well as bacterial pneumonia 2. Left-sided community-acquired pneumonia 3. Acute viral pneumonia with a positive COVID-19 4. Hyperglycemia in the setting of diabetes mellitus type 2 5. Hypertension 6. Dyslipidemia 7. Morbid obesity classII- 8. Junctional tachycardia Increase beta-linsey dose, follow up 2D echo cardiology consultation -continue current antibiotics, COVID isolation, physical therapy evaluation and treatment -we will assess home oxygen requirement upon discharge -discharge plan. Date of Service: Mar 05, 2025 Billing Provider: ALEXANDRU HERRERA MD Common Visit Codes: NOT BILLABLE ALEXANDRU HERRERA MD Mar 05, 2025 12:16
--- NOTE | 2025-03-06 11:29 | DVHPN2 ---
Progress Note - Dictate Date Seen: Mar 05, 2025 Medical Necessity Reason Pt with a Central, PICC or Fol: No Subjective Patient seen and examined at bedside. Currently on supplemental oxygen Overnight events reviewed. vital signs Vital Sign Date Time Temp Pulse Resp B/P (MAP) Pulse Ox O2 Delivery O2 Flow Rate FiO2 03/05/25 13:00 98.0 51 17 130/70 (90) 98 98.0 03/05/25 08:00 Nasal Cannula* 2 28 Total Intake and Output 03/04/25 03/04/25 03/05/25 15:00 23:00 07:00 Intake Total 300 ml 860 ml 800 ml Balance 300 ml 860 ml 800 ml medications Current Medications Medications Dose Ordered Sig/Berkley Route Start Time Stop Time Status Last Admin Dose Admin Diagnostic Test (Pha) 1 strip ACHS 03/05/25 07:00 Cancel Insulin Human Regular AC SC 03/05/25 07:00 UNV Insulin Human Regular ACHS SC 03/05/25 07:00 UNV objective Gen.: Patient lying in bed in no apparent distress. On supplemental oxygen. Head: Normocephalic, atraumatic. Eyes: EOMI/PERRLA. Ears: Normal hearing. Normal anatomy. Neck/trachea: Trachea midline, supple. Nose: Normal external anatomy. Mouth: Moist mucous membranes. Chest: Decreased air entry bilaterally. No wheezing or rhonchi. Cardiovascular: Positive S1, positive S2. Regular rate and rhythm. Abdomen: Positive bowel sounds in all 4 quadrants. Soft, non-tender, non- distended. : Deferred. Rectal: Deferred. Skin: Warm, dry. Intact. Extremities: 2+ radial pulses bilaterally. No lower extremity edema. Neuro: Awake, alert, oriented x3. No gross motor or sensory deficits. Cranial nerves II through XII intact. Gait not assessed. laboratory and microbiology Laboratory Tests 03/05/25 04:26 Test 03/05/25 04:26 Range/Units Serum Glucose 343 #H 74-106 mg/dL Assessment/Plan Impression: Acute hypoxic respiratory failure Pneumonia Atelectasis COVID-19 positive. Obesity, BMI 38.4 Events: Currently on supplemental oxygen, 2 LPM NC Taper O2 as tolerated No distress. No acute overnight events SOB is improved. Continue antibiotics Antitussive for cough Incentive spirometry Decadron 6 mg IVP daily due to increased oxygen requirements and dyspnea, COVID positive. Chest demonstrates unchanged pulmonary vascular congestion. Patient is stable for discharge from the pulmonary standpoint. Asess and arrange for home oxygen. Labs and imaging reviewed. Rest of plan as noted below. Plan: Supplemental oxygen Titrate to keep O2 sats above 92%. CXR on 03/01 revealed left lower lobe airspace disease with poor visualization of the left diaphragm and small left pleural effusion. Continue antibiotics Incentive spirometry Follow up cultures - Blood cultures show no growth Bronchodilators PRN Antitussive for cough On Eliquis PO BID for AFib. Accu-Cheks, ISS Monitor renal function. Monitor electrolytes. Supplement as necessary. Monitor ins and outs. Recommend diet and lifestyle modifications for weight reduction Obesity complicates all care DVT prophylaxis. Prognosis: Poor given patient's multiple co-morbidities. Rest of plan per hospitalist and other consultants. Thank you, BAYLEE Moon, for allowing me to participate in this patient's care. Further recommendations will depend on the patient's clinical course. Please do not hesitate to contact me if you have any questions or concerns. This medical document was created using an electronic medical record system with [employer] dictation system. Although these documentations are being carefully reviewed, there may still be some phonetic and typographical changes. The errors are purely typographical, due to imperfection on the software program, and do not reflect any compromise in the patient's medical care. Dietary Evaluation Review Recommendations by RD: Dietary education by RD Comments: 1) Change 60g CCHO 2g Na diet to 45g CCHO cardiac diet 2) Encourage optimal PO intake 3) Collect HbA1c 4) Refer to outpatient RD/CD[facility] for diabetes counseling and weight management 5) Follow-up with cardiology and pulmonology 6) Continue to monitor I&O, labs, and skin integrity Expected Outcomes/Goals: 1) appetite and labs to improve 2) gradual wt loss 3) f/u in 3-5 days Plan discussed with: Patient, Other (MARA Wu) KARY GAND[facility] Mar 05, 2025 23:34
== END 2025-03-05 16:55 | disposition home or self-care (01) | DRG 871 ==
LOC: ER 17:23 → OVERFLOW 22:58 → TELE-EAST 03-02 16:00
PROVIDERS: ADMIT Nurse Practitioner Family; ATTEND Nurse Practitioner Family
DX: A41.9 Sepsis, unspecified organism (principal); J12.82 Pneumonia due to coronavirus disease 2019; J15.9 Unspecified bacterial pneumonia; U07.1 COVID-19; J96.01 Acute respiratory failure with hypoxia; J90 Pleural effusion, not elsewhere classified; I50.9 Heart failure, unspecified; Z68.41 Body mass index [BMI] 40.0-44.9, adult; E11.65 Type 2 diabetes mellitus with hyperglycemia; I10 Essential (primary) hypertension; I47.19 Other supraventricular tachycardia; Z99.81 Dependence on supplemental oxygen; I48.91 Unspecified atrial fibrillation; E66.01 Morbid (severe) obesity due to excess calories; E78.5 Hyperlipidemia, unspecified; I48.0 Paroxysmal atrial fibrillation; Z96.611 Presence of right artificial shoulder joint; Z68.38 Body mass index [BMI] 38.0-38.9, adult; Z82.49 Family history of ischemic heart disease and other diseases of the circulatory system; Z83.3 Family history of diabetes mellitus; Z79.01 Long term (current) use of anticoagulants
CPT/HCPCS: 36415; 71045; 80048; 80053; 81001; 82962; 83036; 83605; 83735; 83880; 84484; 85007; 85025; 85027; 85610; 85730; 87040; 87426; 87804; 93005; 93306; 94640; 96361; 96365; G0378; J1100; J1815